=== PATIENT | male | born 1945 | race Caucasian/White ===

== ENCOUNTER 2019-08-13 10:58 | Inpatient (IN) ==
[2019-08-13 13:57] LABS: Basophils # 0.1 10*3/uL (0.0-0.2); Eosinophils # 0.3 10*3/uL (0.0-0.87); Eosinophils % 4.4 % (0.00-10.9); Hematocrit 39.6 VOL% (42.0-52.0); Hemoglobin 11.9 GM/DL (14.0-18.0); Immature Granulocytes % 0.5 %; Immature Granulocytes Absolute 0.03 #; Lymphocytes # 0.6 10*3/uL (1.4-4.0); Mean Corpuscular HGB Conc 30.1 GM/DL (32-36); Mean Corpuscular Volume 78.9 FL (87-102); Mean Platelet Volume 11.2 FL (9.6-12.0); Monocytes % 11.7 % (1.7-12.7); Neutrophils % 72.4 % (38.7-73.9); Platelet Count 288 T/CUMM (130-400); Red Blood Count 5.02 MC/CUMM (3.8-5.5); Red Cell Distribution Width 17.2 % (9.3-17.3); White Blood Count 6.3 T/CUMM (4-12)
[2019-08-13 14:20] LABS: Albumin 3.4 G/DL (3.4-5.0); Bilirubin,Total 1.4 MG/DL (0.2-1.0); Calcium 9.1 MG/DL (8.5-10.1); Osmolality,Calculated 264.4 MOS/KG (273-304); Total Protein 7.5 G/DL (6.4-8.3)
[2019-08-13 16:20] LABS: Apearance,Urine CLEAR (Clear); Bilirubin,Urine Negative (Negative); Blood, Urine Small mg/dL (Negative); Glucose,Urine (UA) 50 mg/dL (Negative); Hyaline Casts,Urine 1 /LPF (0-3); Ketones,Urine 5 mg/dL (Negative); Mucus,Urine Few /LPF (Occasional); Nitrite,Urine Negative (Negative); Protein,Urine 100 MG/DL; RBC,Urine 4 /HPF (0-4); Urine Color Yellow (Yellow); Urine Specific Gravity 1.014 (1.001-1.035); WBC,Urine 1 /HPF (0-6)
[2019-08-13] MEDS ORDERED: SIMETHICONE CHEW 125 MG TABLET PO PRN (17:08)
[2019-08-13] MEDS ORDERED: ZALEPLON 5 MG CAPSULE PO PRN (17:08)
[2019-08-13] MEDS ORDERED: guaiFENesin/DM ER 600-30 MG TABLET PO PRN (17:08)
[2019-08-13] MEDS ORDERED: DOCUSATE SODIUM 100 MG CAPSULE PO PRN (17:08)
[2019-08-13] MEDS ORDERED: BISACODYL 5 MG TABLET PO PRN (17:08)
[2019-08-13] MEDS ORDERED: LACTULOSE 20 GM/30 ML UDCUP PO PRN (17:08)
[2019-08-13] MEDS ORDERED: ALUMINUM/MAGNES/SIMETH MAX STR 30 ML UDCUP PO PRN (17:08)
[2019-08-13] MEDS ORDERED: DEXTROSE 10% 250 ML BAG IV PRN (17:08)
[2019-08-13] MEDS ORDERED: DEXTROSE 50% 25 GM/50 ML VIAL IV PRN (17:08)
[2019-08-13] MEDS ORDERED: GLUCAGON 1 MG VIAL IM PRN ×2 (17:08)
[2019-08-13] MEDS ORDERED: diphenhydrAMINE CAP 25 MG CAPSULE PO PRN (17:08)
[2019-08-13] MEDS ORDERED: ONDANSETRON 4 MG/2 ML VIAL IV PRN (17:08)
[2019-08-13] MEDS ORDERED: CALCIUM CARBONATE CHEW 500 MG TABLET PO PRN (17:08)
[2019-08-13] MEDS ORDERED: ALBUTEROL/IPRATROPIUM 3 ML NEB RESP TX PRN (17:08)
[2019-08-13] MEDS ORDERED: INSULIN REGULAR 100 UNIT/ML SUBCUT SCH (18:00)
[2019-08-13 18:07] LABS: Barbiturates Screen,Urine Negative (Negative); Benzodiazepines Screen,Urine Negative (Negative); Cannabinoid Screen,Urine Negative (Negative); Opiate Screen,Urine Negative (Negative); Phencyclidine Screen,Urine Negative (Negative)
[2019-08-14 04:45] LABS: Basophils # 0.1 10*3/uL (0.0-0.2); Eosinophils # 0.3 10*3/uL (0.0-0.87); Hematocrit 35.4 VOL% (42.0-52.0); Immature Granulocytes % 0.3 %; Immature Granulocytes Absolute 0.02 #; Lymphocytes # 0.5 10*3/uL (1.4-4.0); Lymphocytes % 8.3 % (21.2-54.2); Mean Corpuscular HGB Conc 31.1 GM/DL (32-36); Mean Corpuscular Volume 76.5 FL (87-102); Mean Platelet Volume 10.9 FL (9.6-12.0); Monocytes % 10.9 % (1.7-12.7); Neutrophils % 74.5 % (38.7-73.9); Platelet Count 249 T/CUMM (130-400); Red Blood Count 4.63 MC/CUMM (3.8-5.5); Red Cell Distribution Width 16.9 % (9.3-17.3); White Blood Count 5.8 T/CUMM (4-12)
[2019-08-14 05:15] LABS: Risk Ratio 4.25; Thyroid Stimulating Hormone 6.22 uIU/ml (0.358-3.74); VLDL CHOLESTEROL 19.2 MG/DL
[2019-08-14 06:45] LABS: Bilirubin,Total 1.4 MG/DL (0.2-1.0); Calcium 8.2 MG/DL (8.5-10.1); Osmolality,Calculated 268.1 MOS/KG (273-304); Total Protein 6.3 G/DL (6.4-8.3)
[2019-08-14] MEDS ORDERED: HALOPERIDOL 5 MG/ML AMP IM ONE (08:44)
[2019-08-14] MEDS ORDERED: diphenhydrAMINE 50 MG/1 ML VIAL IM ONE (08:44)
[2019-08-14] MEDS ORDERED: LORazepam 2 MG/1 ML VIAL IV ONE (08:45)
[2019-08-14] MEDS ORDERED: LORazepam 2 MG/1 ML VIAL IM ONE (08:45)
[2019-08-14] MEDS: INSULIN REGULAR 100 UNIT/ML SUBCUT SCH ×4 (08:51→21:22)
[2019-08-14] MEDS: PANTOPRAZOLE 40 MG TABLET PO SCH (09:54)
[2019-08-14] MEDS: MEMANTINE 5 MG TABLET PO SCH (15:41)
[2019-08-14] MEDS: RIVAROXABAN 20 MG TABLET PO SCH (17:08)
[2019-08-14] MEDS: QUEtiapine 25 MG TABLET PO SCH (21:37)
[2019-08-14] MEDS: hydrALAZINE 20 MG/1 ML VIAL IV PRN (21:38)
[2019-08-14] MEDS: DESITIN 4OZ/NYSTATIN 15 GRAM MIXTURE PASTE TOP SCH (21:59)
[2019-08-15 06:43] LABS: Basophils # 0.1 10*3/uL (0.0-0.2); Basophils % 1.2 % (0.0-0.8); Eosinophils # 0.6 10*3/uL (0.0-0.87); Eosinophils % 9.8 % (0.00-10.9); Hemoglobin 11.2 GM/DL (14.0-18.0); Immature Granulocytes % 0.3 %; Immature Granulocytes Absolute 0.02 #; Lymphocytes # 0.8 10*3/uL (1.4-4.0); Lymphocytes % 12.7 % (21.2-54.2); Mean Corpuscular HGB Conc 31.1 GM/DL (32-36); Mean Corpuscular Volume 75.8 FL (87-102); Mean Platelet Volume 10.6 FL (9.6-12.0); Monocytes % 13.2 % (1.7-12.7); Neutrophils % 62.8 % (38.7-73.9); Platelet Count 252 T/CUMM (130-400); Red Blood Count 4.75 MC/CUMM (3.8-5.5); Red Cell Distribution Width 17.2 % (9.3-17.3); White Blood Count 6.5 T/CUMM (4-12)
[2019-08-15 07:13] LABS: Albumin 2.8 G/DL (3.4-5.0); Bilirubin,Total 1.3 MG/DL (0.2-1.0); Calcium 8.5 MG/DL (8.5-10.1); Osmolality,Calculated 271.8 MOS/KG (273-304); Total Protein 6.7 G/DL (6.4-8.3)
[2019-08-15] MEDS: POTASSIUM CHLORIDE 20 MEQ TABLET PO PRN ×4 (09:08→13:57)
[2019-08-15] MEDS: INSULIN REGULAR 100 UNIT/ML SUBCUT SCH ×4 (09:09→20:06)
[2019-08-15] MEDS: PANTOPRAZOLE 40 MG TABLET PO SCH (09:55)
[2019-08-15] MEDS: MEMANTINE 5 MG TABLET PO SCH (09:56)
[2019-08-15] MEDS: DESITIN 4OZ/NYSTATIN 15 GRAM MIXTURE PASTE TOP SCH ×2 (09:56→19:31)
[2019-08-15] MEDS: RIVAROXABAN 20 MG TABLET PO SCH (17:20)
[2019-08-15] MEDS: hydrALAZINE 20 MG/1 ML VIAL IV PRN (17:21)
[2019-08-15] MEDS: QUEtiapine 25 MG TABLET PO SCH ×2 (19:31→22:28)
[2019-08-16 06:12] LABS: Basophils # 0.1 10*3/uL (0.0-0.2); Basophils % 1.1 % (0.0-0.8); Eosinophils # 0.6 10*3/uL (0.0-0.87); Eosinophils % 8.9 % (0.00-10.9); Hematocrit 38.4 VOL% (42.0-52.0); Hemoglobin 11.9 GM/DL (14.0-18.0); Immature Granulocytes % 0.5 %; Immature Granulocytes Absolute 0.03 #; Lymphocytes # 0.7 10*3/uL (1.4-4.0); Lymphocytes % 11.8 % (21.2-54.2); Mean Corpuscular Volume 77.3 FL (87-102); Mean Platelet Volume 10.6 FL (9.6-12.0); Monocytes % 13.9 % (1.7-12.7); Neutrophils % 63.8 % (38.7-73.9); Platelet Count 277 T/CUMM (130-400); Red Blood Count 4.97 MC/CUMM (3.8-5.5); Red Cell Distribution Width 17.6 % (9.3-17.3); White Blood Count 6.3 T/CUMM (4-12)
[2019-08-16 06:19] LABS: Basophils # 0.1 10*3/uL (0.0-0.2); Basophils % 1.2 % (0.0-0.8); Eosinophils # 0.6 10*3/uL (0.0-0.87); Eosinophils % 8.8 % (0.00-10.9); Hematocrit 39.5 VOL% (42.0-52.0); Immature Granulocytes % 0.3 %; Immature Granulocytes Absolute 0.02 #; Lymphocytes # 0.7 10*3/uL (1.4-4.0); Lymphocytes % 11.2 % (21.2-54.2); Mean Corpuscular HGB Conc 30.4 GM/DL (32-36); Mean Corpuscular Volume 78.8 FL (87-102); Mean Platelet Volume 11.1 FL (9.6-12.0); Neutrophils % 65.5 % (38.7-73.9); Platelet Count 297 T/CUMM (130-400); Red Blood Count 5.01 MC/CUMM (3.8-5.5); Red Cell Distribution Width 17.7 % (9.3-17.3); White Blood Count 6.6 T/CUMM (4-12)
[2019-08-16 06:43] LABS: Albumin 3.1 G/DL (3.4-5.0); Bilirubin,Total 1.4 MG/DL (0.2-1.0); Calcium 8.6 MG/DL (8.5-10.1); Total Protein 7.1 G/DL (6.4-8.3)
[2019-08-16 06:53] LABS: Folate 8.6 NG/ML (5.4-24.0); Vitamin B12 683 PG/ML (211-911)
[2019-08-16] MEDS: INSULIN REGULAR 100 UNIT/ML SUBCUT SCH ×4 (09:02→21:23)
[2019-08-16 09:22] LABS: Sedimentation Rate-Westergren 35 MM/HR (0-20)
[2019-08-16] MEDS: PANTOPRAZOLE 40 MG TABLET PO SCH (09:23)
[2019-08-16] MEDS: MEMANTINE 5 MG TABLET PO SCH (09:23)
[2019-08-16] MEDS: DESITIN 4OZ/NYSTATIN 15 GRAM MIXTURE PASTE TOP SCH ×2 (09:24→21:21)
[2019-08-16 10:37] LABS: Hemoglobin A1 (Alkaline) 97.5 % (96.5-98.5); Hemoglobin A2 (Alkaline) 2.5 % (1.5-3.5)
[2019-08-16] MEDS: hydrALAZINE 20 MG/1 ML VIAL IV PRN ×2 (12:31→18:00)
[2019-08-16] MEDS: RIVAROXABAN 20 MG TABLET PO SCH (17:24)
[2019-08-16] MEDS: QUEtiapine 25 MG TABLET PO SCH (21:21)
[2019-08-17 05:57] LABS: Basophils % 0.4 % (0.0-0.8); Eosinophils # 0.1 10*3/uL (0.0-0.87); Eosinophils % 0.7 % (0.00-10.9); Hematocrit 43.7 VOL% (42.0-52.0); Hemoglobin 13.6 GM/DL (14.0-18.0); Immature Granulocytes % 0.6 %; Immature Granulocytes Absolute 0.06 #; Lymphocytes # 0.6 10*3/uL (1.4-4.0); Lymphocytes % 5.5 % (21.2-54.2); Mean Corpuscular HGB Conc 31.1 GM/DL (32-36); Mean Corpuscular Volume 76.5 FL (87-102); Mean Platelet Volume 11.1 FL (9.6-12.0); Monocytes % 10.3 % (1.7-12.7); Neutrophils % 82.5 % (38.7-73.9); Platelet Count 314 T/CUMM (130-400); Red Blood Count 5.71 MC/CUMM (3.8-5.5); Red Cell Distribution Width 18.4 % (9.3-17.3); White Blood Count 10.8 T/CUMM (4-12)
[2019-08-17 06:36] LABS: Albumin 3.2 G/DL (3.4-5.0); Calcium 9.2 MG/DL (8.5-10.1); Osmolality,Calculated 263.5 MOS/KG (273-304); Total Protein 7.9 G/DL (6.4-8.3)
[2019-08-17 06:41] LABS: Free T4 (Free Thyroxine) 1.27 NG/DL (0.76-1.46); Thyroid Stimulating Hormone 5.94 uIU/ml (0.358-3.74)
[2019-08-17] MEDS: PANTOPRAZOLE 40 MG TABLET PO SCH (08:17)
[2019-08-17] MEDS: MEMANTINE 5 MG TABLET PO SCH (08:17)
[2019-08-17] MEDS: DESITIN 4OZ/NYSTATIN 15 GRAM MIXTURE PASTE TOP SCH ×2 (08:17→21:02)
[2019-08-17] MEDS: INSULIN REGULAR 100 UNIT/ML SUBCUT SCH ×4 (09:15→21:01)
[2019-08-17] MEDS: RIVAROXABAN 20 MG TABLET PO SCH (16:50)
[2019-08-17] MEDS: ACETAMINOPHEN 325 MG TABLET PO PRN (21:01)
[2019-08-17] MEDS: QUEtiapine 25 MG TABLET PO SCH (21:01)
[2019-08-18 06:17] LABS: Basophils # 0.1 10*3/uL (0.0-0.2); Basophils % 0.6 % (0.0-0.8); Eosinophils # 0.2 10*3/uL (0.0-0.87); Eosinophils % 2.2 % (0.00-10.9); Hemoglobin 13.2 GM/DL (14.0-18.0); Immature Granulocytes % 0.5 %; Immature Granulocytes Absolute 0.05 #; Lymphocytes # 0.8 10*3/uL (1.4-4.0); Lymphocytes % 7.8 % (21.2-54.2); Mean Corpuscular HGB Conc 30.1 GM/DL (32-36); Mean Platelet Volume 10.6 FL (9.6-12.0); Monocytes % 13.4 % (1.7-12.7); Neutrophils % 75.5 % (38.7-73.9); Platelet Count 334 T/CUMM (130-400); Red Blood Count 5.63 MC/CUMM (3.8-5.5); Red Cell Distribution Width 18.8 % (9.3-17.3); White Blood Count 10.5 T/CUMM (4-12)
[2019-08-18 06:20] LABS: Albumin 2.9 G/DL (3.4-5.0); Bilirubin,Total 3.2 MG/DL (0.2-1.0); Osmolality,Calculated 271.1 MOS/KG (273-304); Total Protein 7.6 G/DL (6.4-8.3)
[2019-08-18 06:38] LABS: Hematocrit 43.1 VOL% (42.0-52.0)
[2019-08-18] MEDS: POTASSIUM CHLORIDE 20 MEQ TABLET PO PRN ×4 (07:20→14:09)
[2019-08-18] MEDS: INSULIN REGULAR 100 UNIT/ML SUBCUT SCH ×4 (08:50→20:45)
[2019-08-18] MEDS: MEMANTINE 5 MG TABLET PO SCH (08:52)
[2019-08-18] MEDS: PANTOPRAZOLE 40 MG TABLET PO SCH (08:52)
[2019-08-18] MEDS: DESITIN 4OZ/NYSTATIN 15 GRAM MIXTURE PASTE TOP SCH ×3 (09:12→20:37)
[2019-08-18] MEDS: RIVAROXABAN 20 MG TABLET PO SCH (16:43)
[2019-08-18] MEDS: QUEtiapine 25 MG TABLET PO SCH (20:36)
[2019-08-19] MEDS: INSULIN REGULAR 100 UNIT/ML SUBCUT SCH ×4 (09:30→20:56)
[2019-08-19] MEDS: MEMANTINE 5 MG TABLET PO SCH (09:31)
[2019-08-19] MEDS: PANTOPRAZOLE 40 MG TABLET PO SCH (09:31)
[2019-08-19] MEDS: DESITIN 4OZ/NYSTATIN 15 GRAM MIXTURE PASTE TOP SCH ×2 (09:32→20:56)
[2019-08-19 14:09] LABS: Basophils # 0.1 10*3/uL (0.0-0.2); Basophils % 0.6 % (0.0-0.8); Eosinophils # 0.3 10*3/uL (0.0-0.87); Eosinophils % 3.6 % (0.00-10.9); Hematocrit 41.2 VOL% (42.0-52.0); Hemoglobin 12.7 GM/DL (14.0-18.0); Immature Granulocytes % 0.6 %; Immature Granulocytes Absolute 0.05 #; Lymphocytes # 0.9 10*3/uL (1.4-4.0); Lymphocytes % 9.4 % (21.2-54.2); Mean Corpuscular HGB Conc 30.8 GM/DL (32-36); Mean Corpuscular Volume 76.4 FL (87-102); Mean Platelet Volume 11.1 FL (9.6-12.0); Monocytes % 13.8 % (1.7-12.7); Platelet Count 325 T/CUMM (130-400); Red Blood Count 5.39 MC/CUMM (3.8-5.5); Red Cell Distribution Width 18.7 % (9.3-17.3); White Blood Count 9.1 T/CUMM (4-12)
[2019-08-19] MEDS: RIVAROXABAN 20 MG TABLET PO SCH (16:40)
[2019-08-19] MEDS: QUEtiapine 25 MG TABLET PO SCH (20:55)
[2019-08-20 05:46] LABS: Basophils # 0.1 10*3/uL (0.0-0.2); Basophils % 0.6 % (0.0-0.8); Eosinophils # 0.5 10*3/uL (0.0-0.87); Eosinophils % 6.3 % (0.00-10.9); Hematocrit 40.5 VOL% (42.0-52.0); Hemoglobin 12.2 GM/DL (14.0-18.0); Immature Granulocytes % 0.6 %; Immature Granulocytes Absolute 0.05 #; Lymphocytes # 0.7 10*3/uL (1.4-4.0); Lymphocytes % 8.7 % (21.2-54.2); Mean Corpuscular HGB Conc 30.1 GM/DL (32-36); Mean Platelet Volume 10.8 FL (9.6-12.0); Neutrophils % 69.8 % (38.7-73.9); Platelet Count 315 T/CUMM (130-400); Red Blood Count 5.19 MC/CUMM (3.8-5.5); Red Cell Distribution Width 18.4 % (9.3-17.3); White Blood Count 7.8 T/CUMM (4-12)
[2019-08-20] MEDS: INSULIN REGULAR 100 UNIT/ML SUBCUT SCH ×4 (08:21→20:42)
[2019-08-20] MEDS: PANTOPRAZOLE 40 MG TABLET PO SCH (09:18)
[2019-08-20] MEDS: MEMANTINE 5 MG TABLET PO SCH (09:18)
[2019-08-20] MEDS: DESITIN 4OZ/NYSTATIN 15 GRAM MIXTURE PASTE TOP SCH ×2 (09:19→20:17)
[2019-08-20] MEDS ORDERED: PREGABALIN 75 MG CAPSULE PO SCH (12:00)
[2019-08-20] MEDS: METOPROLOL SUCCINATE XL 50 MG TABLET PO SCH (12:47)
[2019-08-20] MEDS: AMIODARONE 200 MG TABLET PO SCH ×2 (12:47→20:17)
[2019-08-20] MEDS: metFORMIN 500 MG TABLET PO SCH ×2 (12:47→20:17)
[2019-08-20] MEDS: ALFUZOSIN 10 MG TABLET PO SCH (12:48)
[2019-08-20] MEDS: LEVOTHYROXINE 75 MCG TABLET PO SCH (12:48)
[2019-08-20] MEDS: lisinopriL 5 MG TABLET PO SCH (12:48)
[2019-08-20] MEDS: RIVAROXABAN 20 MG TABLET PO SCH (17:45)
[2019-08-20] MEDS: ROSUVASTATIN 10 MG TABLET PO SCH (20:17)
[2019-08-20] MEDS: QUEtiapine 25 MG TABLET PO SCH (20:17)
[2019-08-20] MEDS: FUROSEMIDE 40 MG TABLET PO SCH (20:17)
[2019-08-20] MEDS ORDERED: traZODone 50 MG TABLET PO SCH (21:00)
[2019-08-21] MEDS: LEVOTHYROXINE 75 MCG TABLET PO SCH (06:10)
[2019-08-21] MEDS: INSULIN REGULAR 100 UNIT/ML SUBCUT SCH ×4 (08:10→21:30)
[2019-08-21] MEDS: PANTOPRAZOLE 40 MG TABLET PO SCH (09:49)
[2019-08-21] MEDS: METOPROLOL SUCCINATE XL 50 MG TABLET PO SCH (09:49)
[2019-08-21] MEDS: lisinopriL 5 MG TABLET PO SCH (09:49)
[2019-08-21] MEDS: metFORMIN 500 MG TABLET PO SCH ×2 (09:49→21:27)
[2019-08-21] MEDS: MEMANTINE 5 MG TABLET PO SCH (09:49)
[2019-08-21] MEDS: ALFUZOSIN 10 MG TABLET PO SCH (09:49)
[2019-08-21] MEDS: AMIODARONE 200 MG TABLET PO SCH ×2 (09:49→21:27)
[2019-08-21] MEDS: DESITIN 4OZ/NYSTATIN 15 GRAM MIXTURE PASTE TOP SCH ×2 (09:50→21:30)
[2019-08-21] MEDS: FUROSEMIDE 40 MG TABLET PO SCH ×2 (09:50→21:27)
[2019-08-21] MEDS: ACETAMINOPHEN 325 MG TABLET PO PRN ×2 (12:29→21:27)
[2019-08-21] MEDS: RIVAROXABAN 20 MG TABLET PO SCH (17:05)
[2019-08-21] MEDS: ROSUVASTATIN 10 MG TABLET PO SCH (21:27)
[2019-08-21] MEDS: QUEtiapine 25 MG TABLET PO SCH (21:27)
[2019-08-22 05:55] LABS: Basophils # 0.1 10*3/uL (0.0-0.2); Basophils % 1.3 % (0.0-0.8); Eosinophils # 0.5 10*3/uL (0.0-0.87); Eosinophils % 7.4 % (0.00-10.9); Hematocrit 39.7 VOL% (42.0-52.0); Hemoglobin 12.5 GM/DL (14.0-18.0); Immature Granulocytes % 0.5 %; Immature Granulocytes Absolute 0.03 #; Lymphocytes # 0.8 10*3/uL (1.4-4.0); Lymphocytes % 13.6 % (21.2-54.2); Mean Corpuscular HGB Conc 31.5 GM/DL (32-36); Mean Corpuscular Volume 76.8 FL (87-102); Mean Platelet Volume 10.5 FL (9.6-12.0); Monocytes % 13.7 % (1.7-12.7); Neutrophils % 63.5 % (38.7-73.9); Platelet Count 316 T/CUMM (130-400); Red Blood Count 5.17 MC/CUMM (3.8-5.5); White Blood Count 6.1 T/CUMM (4-12)
[2019-08-22] MEDS: LEVOTHYROXINE 75 MCG TABLET PO SCH (06:07)
[2019-08-22 06:09] LABS: Calcium 9.1 MG/DL (8.5-10.1)
[2019-08-22] MEDS: INSULIN REGULAR 100 UNIT/ML SUBCUT SCH ×4 (08:17→20:33)
[2019-08-22] MEDS ORDERED: POTASSIUM CHLORIDE 20 MEQ TABLET PO ONE (10:35)
[2019-08-22] MEDS: metFORMIN 500 MG TABLET PO SCH ×2 (10:41→20:31)
[2019-08-22] MEDS: MEMANTINE 5 MG TABLET PO SCH (10:41)
[2019-08-22] MEDS: DESITIN 4OZ/NYSTATIN 15 GRAM MIXTURE PASTE TOP SCH ×2 (10:41→20:34)
[2019-08-22] MEDS: PANTOPRAZOLE 40 MG TABLET PO SCH (10:41)
[2019-08-22] MEDS: FUROSEMIDE 40 MG TABLET PO SCH ×2 (10:41→20:34)
[2019-08-22] MEDS: lisinopriL 5 MG TABLET PO SCH (10:41)
[2019-08-22] MEDS: AMIODARONE 200 MG TABLET PO SCH ×2 (10:41→20:31)
[2019-08-22] MEDS: ALFUZOSIN 10 MG TABLET PO SCH (10:42)
[2019-08-22] MEDS: METOPROLOL SUCCINATE XL 50 MG TABLET PO SCH (10:42)
[2019-08-22] MEDS: RIVAROXABAN 20 MG TABLET PO SCH (17:08)
[2019-08-22] MEDS: ACETAMINOPHEN 325 MG TABLET PO PRN (20:31)
[2019-08-22] MEDS: ROSUVASTATIN 10 MG TABLET PO SCH (20:31)
[2019-08-22] MEDS: QUEtiapine 25 MG TABLET PO SCH (20:31)
[2019-08-23 05:40] LABS: Basophils # 0.1 10*3/uL (0.0-0.2); Basophils % 1.4 % (0.0-0.8); Eosinophils # 0.4 10*3/uL (0.0-0.87); Eosinophils % 6.6 % (0.00-10.9); Hemoglobin 12.1 GM/DL (14.0-18.0); Immature Granulocytes % 0.5 %; Immature Granulocytes Absolute 0.03 #; Lymphocytes # 1.1 10*3/uL (1.4-4.0); Mean Corpuscular Volume 77.4 FL (87-102); Mean Platelet Volume 10.3 FL (9.6-12.0); Monocytes % 13.1 % (1.7-12.7); Neutrophils % 62.4 % (38.7-73.9); Platelet Count 339 T/CUMM (130-400); Red Blood Count 5.22 MC/CUMM (3.8-5.5); Red Cell Distribution Width 18.2 % (9.3-17.3); White Blood Count 6.6 T/CUMM (4-12)
[2019-08-23 06:00] LABS: Calcium 8.9 MG/DL (8.5-10.1); Osmolality,Calculated 275.1 MOS/KG (273-304)
[2019-08-23] MEDS: LEVOTHYROXINE 75 MCG TABLET PO SCH (06:11)
[2019-08-23] MEDS: ACETAMINOPHEN 325 MG TABLET PO PRN (06:11)
[2019-08-23 06:23] LABS: Hematocrit 40.1 VOL% (42.0-52.0)
[2019-08-23] MEDS ORDERED: SODIUM CHLORIDE 0.9% 1,000 ML IV SCH (08:00)
[2019-08-23] MEDS: INSULIN REGULAR 100 UNIT/ML SUBCUT SCH ×2 (08:27→11:54)
[2019-08-23] MEDS: DESITIN 4OZ/NYSTATIN 15 GRAM MIXTURE PASTE TOP SCH (09:13)
[2019-08-23] MEDS: AMIODARONE 200 MG TABLET PO SCH ×2 (09:13→09:19)
[2019-08-23] MEDS: PANTOPRAZOLE 40 MG TABLET PO SCH ×2 (09:13→09:20)
[2019-08-23] MEDS: MEMANTINE 5 MG TABLET PO SCH ×2 (09:13→09:19)
[2019-08-23] MEDS: ALFUZOSIN 10 MG TABLET PO SCH ×2 (09:13→09:20)
[2019-08-23] MEDS: METOPROLOL SUCCINATE XL 50 MG TABLET PO SCH ×2 (09:13→09:20)
[2019-08-23 12:09] VITALS: BP 96/50
== END 2019-08-23 12:24 | disposition psychiatric hospital, planned readmission (93) | DRG 57 ==
LOC: N.ED 10:58 → N.EDINP 17:08 → SUATTDRO 17:08 → N.EDINP 20:47 → N.TELES 22:18
PROVIDERS: ADMIT Hospitalist; ATTEND Internal Medicine

== ENCOUNTER 2019-08-27 12:14 | Inpatient (IN) ==
[2019-08-27] MEDS ORDERED: SODIUM CHLORIDE 0.9% 1,000 ML IV STA ×2 (12:47→15:45)
[2019-08-27 13:00] LABS: Basophils % 0.3 % (0.0-0.8); Eosinophils # 0.1 10*3/uL (0.0-0.87); Eosinophils % 0.8 % (0.00-10.9); Hematocrit 43.8 VOL% (42.0-52.0); Hemoglobin 13.3 GM/DL (14.0-18.0); Immature Granulocytes % 0.6 %; Immature Granulocytes Absolute 0.07 #; Lymphocytes # 1.1 10*3/uL (1.4-4.0); Lymphocytes % 10.2 % (21.2-54.2); Mean Corpuscular HGB Conc 30.4 GM/DL (32-36); Mean Corpuscular Volume 77.4 FL (87-102); Mean Platelet Volume 11.1 FL (9.6-12.0); Monocytes % 13.5 % (1.7-12.7); Neutrophils % 74.6 % (38.7-73.9); Platelet Count 359 T/CUMM (130-400); Red Blood Count 5.66 MC/CUMM (3.8-5.5); Red Cell Distribution Width 18.7 % (9.3-17.3); White Blood Count 11.2 T/CUMM (4-12)
[2019-08-27 13:14] LABS: Osmolality,Calculated 279.2 MOS/KG (273-304)
[2019-08-27 14:55] LABS: Apearance,Urine CLEAR (Clear); Bilirubin,Urine Negative (Negative); Blood, Urine Moderate mg/dL (Negative); Glucose,Urine (UA) Negative (Negative); Ketones,Urine Negative (Negative); Mucus,Urine Occasional /LPF (Occasional); Nitrite,Urine Negative (Negative); Protein,Urine Negative; RBC,Urine 7 /HPF (0-4); Urine Color Amber (Yellow); Urine Specific Gravity 1.014 (1.001-1.035); Urine Urobilinogen < 2.0 EU/DL (0.2-1.0)
[2019-08-27] MEDS ORDERED: MORPHINE 4 MG/1 ML VIAL IV PRN (15:12)
[2019-08-27] MEDS ORDERED: GLUCAGON 1 MG VIAL IM PRN (15:12)
[2019-08-27] MEDS ORDERED: DEXTROSE 50% 25 GM/50 ML VIAL IV PRN (15:12)
[2019-08-27] MEDS: INSULIN REGULAR 100 UNIT/ML SUBCUT SCH ×2 (17:29→21:37)
[2019-08-27] MEDS: DEXTROSE 5% NACL 0.9% 1,000 ML IV SCH (17:36)
[2019-08-27] MEDS ORDERED: ENOXAPARIN 30 MG/0.3 ML SYRINGE SUBCUT SCH (21:00)
[2019-08-27] MEDS: RIVAROXABAN 20 MG TABLET PO SCH (21:36)
[2019-08-27] MEDS: AMIODARONE 200 MG TABLET PO SCH (21:37)
[2019-08-28] MEDS: DEXTROSE 5% NACL 0.9% 1,000 ML IV SCH (02:35)
[2019-08-28] MEDS: LEVOTHYROXINE 88 MCG TABLET PO SCH (06:45)
[2019-08-28 07:52] LABS: Basophils % 0.4 % (0.0-0.8); Eosinophils # 0.2 10*3/uL (0.0-0.87); Eosinophils % 2.2 % (0.00-10.9); Hematocrit 37.7 VOL% (42.0-52.0); Hemoglobin 11.6 GM/DL (14.0-18.0); Immature Granulocytes % 0.9 %; Immature Granulocytes Absolute 0.07 #; Lymphocytes # 0.7 10*3/uL (1.4-4.0); Lymphocytes % 8.6 % (21.2-54.2); Mean Corpuscular HGB Conc 30.8 GM/DL (32-36); Mean Corpuscular Volume 76.3 FL (87-102); Mean Platelet Volume 12.1 FL (9.6-12.0); Monocytes % 15.4 % (1.7-12.7); Neutrophils % 72.5 % (38.7-73.9); Platelet Count 294 T/CUMM (130-400); Red Blood Count 4.94 MC/CUMM (3.8-5.5); Red Cell Distribution Width 18.2 % (9.3-17.3); White Blood Count 7.8 T/CUMM (4-12)
[2019-08-28 08:14] LABS: Albumin 2.3 G/DL (3.4-5.0); Bilirubin,Total 0.6 MG/DL (0.2-1.0); Calcium 8.1 MG/DL (8.5-10.1); Osmolality,Calculated 288.5 MOS/KG (273-304); Total Protein 6.9 G/DL (6.4-8.3)
[2019-08-28] MEDS ORDERED: PANTOPRAZOLE 40 MG TABLET PO SCH (09:00)
[2019-08-28] MEDS: MEMANTINE 5 MG TABLET PO SCH (09:26)
[2019-08-28] MEDS: AMIODARONE 200 MG TABLET PO SCH ×2 (09:26→21:25)
[2019-08-28] MEDS: INSULIN REGULAR 100 UNIT/ML SUBCUT SCH ×4 (09:26→21:25)
[2019-08-28] MEDS: METOPROLOL TARTRATE 25 MG TABLET PO SCH (09:26)
[2019-08-28] MEDS ORDERED: DEXTROSE 5% NACL 0.45% 1,000 ML IV SCH (15:00)
[2019-08-28] MEDS: SODIUM CHLORIDE IV SCH (15:58)
[2019-08-28] MEDS: SODIUM BICARB IV SCH (15:58)
[2019-08-28] MEDS: [UNRECOGNIZED DRUG - OTHER] IV SCH (15:58)
[2019-08-28] MEDS: RIVAROXABAN 20 MG TABLET PO SCH (16:02)
[2019-08-29] MEDS: SODIUM BICARB IV SCH ×3 (02:31→21:35)
[2019-08-29] MEDS: SODIUM CHLORIDE IV SCH ×3 (02:31→21:35)
[2019-08-29] MEDS: [UNRECOGNIZED DRUG - OTHER] IV SCH (02:31)
[2019-08-29] MEDS: DEXTROSE 5% NACL 0.9% 1,000 ML IV SCH (02:33)
[2019-08-29 05:56] LABS: Calcium 8.1 MG/DL (8.5-10.1); Osmolality,Calculated 285.8 MOS/KG (273-304)
[2019-08-29] MEDS: LEVOTHYROXINE 88 MCG TABLET PO SCH (06:00)
[2019-08-29] MEDS: MEMANTINE 5 MG TABLET PO SCH (09:34)
[2019-08-29] MEDS: INSULIN REGULAR 100 UNIT/ML SUBCUT SCH ×3 (09:34→16:38)
[2019-08-29] MEDS: AMIODARONE 200 MG TABLET PO SCH ×2 (09:35→21:35)
[2019-08-29] MEDS: HEPARIN 5,000 UNIT/1 ML VIAL SUBCUT SCH ×2 (09:35→21:36)
[2019-08-29] MEDS: METOPROLOL TARTRATE 25 MG TABLET PO SCH (09:38)
[2019-08-29] MEDS: [UNRECOGNIZED DRUG - OTHER] IV SCH ×2 (09:46→21:35)
[2019-08-29 12:34] LABS: Protein/Creatinine Ratio,Urine 1.3 RATIO
[2019-08-29] MEDS: ACETAMINOPHEN 325 MG TABLET PO PRN (21:35)
[2019-08-30] MEDS: INSULIN REGULAR 100 UNIT/ML SUBCUT SCH ×5 (02:50→22:05)
[2019-08-30 05:24] LABS: Basophils # 0.1 10*3/uL (0.0-0.2); Basophils % 0.7 % (0.0-0.8); Eosinophils # 0.2 10*3/uL (0.0-0.87); Eosinophils % 2.7 % (0.00-10.9); Hemoglobin 10.6 GM/DL (14.0-18.0); Immature Granulocytes Absolute 0.07 #; Lymphocytes # 0.6 10*3/uL (1.4-4.0); Mean Corpuscular HGB Conc 32.1 GM/DL (32-36); Mean Corpuscular Volume 72.8 FL (87-102); Mean Platelet Volume 11.7 FL (9.6-12.0); Neutrophils % 73.6 % (38.7-73.9); Platelet Count 270 T/CUMM (130-400); Red Blood Count 4.53 MC/CUMM (3.8-5.5); Red Cell Distribution Width 18.2 % (9.3-17.3); White Blood Count 6.8 T/CUMM (4-12)
[2019-08-30] MEDS: LEVOTHYROXINE 88 MCG TABLET PO SCH (05:44)
[2019-08-30 05:51] LABS: Calcium 7.9 MG/DL (8.5-10.1); Osmolality,Calculated 289.2 MOS/KG (273-304)
[2019-08-30] MEDS: [UNRECOGNIZED DRUG - OTHER] IV SCH (08:25)
[2019-08-30] MEDS: SODIUM BICARB IV SCH (08:25)
[2019-08-30] MEDS: SODIUM CHLORIDE IV SCH (08:25)
[2019-08-30] MEDS: MEMANTINE 5 MG TABLET PO SCH (08:26)
[2019-08-30] MEDS: METOPROLOL TARTRATE 25 MG TABLET PO SCH (08:26)
[2019-08-30] MEDS: HEPARIN 5,000 UNIT/1 ML VIAL SUBCUT SCH (08:26)
[2019-08-30] MEDS: AMIODARONE 200 MG TABLET PO SCH ×2 (08:26→22:04)
[2019-08-30] MEDS ORDERED: SODIUM BICARB INJ 100 MEQ in DEXTROSE 5% NACL 0.22% 1,000 ML IV SCH (15:00)
[2019-08-30] MEDS: DEXTROSE 5% NACL 0.9% 1,000 ML IV SCH (18:27)
[2019-08-30] MEDS ORDERED: PREGABALIN 75 MG CAPSULE PO SCH (21:00)
[2019-08-30] MEDS: PANTOPRAZOLE 40 MG TABLET PO SCH (22:04)
[2019-08-30] MEDS: MELATONIN 3 MG TABLET PO SCH (22:04)
[2019-08-31] MEDS: LEVOTHYROXINE 88 MCG TABLET PO SCH (05:49)
[2019-08-31] MEDS: DEXTROSE 5% NACL 0.9% 1,000 ML IV SCH ×3 (05:52→23:29)
[2019-08-31 06:55] LABS: Basophils % 0.6 % (0.0-0.8); Eosinophils # 0.2 10*3/uL (0.0-0.87); Eosinophils % 2.6 % (0.00-10.9); Hematocrit 33.2 VOL% (42.0-52.0); Hemoglobin 10.9 GM/DL (14.0-18.0); Immature Granulocytes % 0.8 %; Immature Granulocytes Absolute 0.05 #; Lymphocytes # 0.7 10*3/uL (1.4-4.0); Lymphocytes % 10.6 % (21.2-54.2); Mean Corpuscular HGB Conc 32.8 GM/DL (32-36); Mean Corpuscular Volume 73.3 FL (87-102); Mean Platelet Volume 11.9 FL (9.6-12.0); Monocytes % 13.6 % (1.7-12.7); Neutrophils % 71.8 % (38.7-73.9); Platelet Count 297 T/CUMM (130-400); Red Blood Count 4.53 MC/CUMM (3.8-5.5); Red Cell Distribution Width 18.6 % (9.3-17.3); White Blood Count 6.5 T/CUMM (4-12)
[2019-08-31 07:21] LABS: Calcium 8.1 MG/DL (8.5-10.1); Osmolality,Calculated 284.1 MOS/KG (273-304)
[2019-08-31] MEDS ORDERED: MAGNESIUM SULF RIDER 4 GM in PREMIX 1 EACH IV PRN (07:56)
[2019-08-31] MEDS: INSULIN REGULAR 100 UNIT/ML SUBCUT SCH ×4 (08:16→21:25)
[2019-08-31] MEDS: ALFUZOSIN 10 MG TABLET PO SCH (08:54)
[2019-08-31] MEDS: MEMANTINE 5 MG TABLET PO SCH (08:54)
[2019-08-31] MEDS: METOPROLOL TARTRATE 25 MG TABLET PO SCH (08:55)
[2019-08-31] MEDS: PANTOPRAZOLE 40 MG TABLET PO SCH ×2 (08:55→21:26)
[2019-08-31] MEDS: AMIODARONE 200 MG TABLET PO SCH ×2 (08:55→21:26)
[2019-08-31] MEDS: MAGNESIUM SULF RIDER 2 GM in PREMIX 1 EACH IV PRN (08:57)
[2019-08-31] MEDS ORDERED: MAGNESIUM SULF RIDER 4 GM in PREMIX 1 EACH IV ONE (10:16)
[2019-08-31] MEDS ORDERED: MAGNESIUM SULF RIDER 2 GM in PREMIX 1 EACH IV ONE (11:00)
[2019-08-31] MEDS: RIVAROXABAN 15 MG TABLET PO SCH (17:41)
[2019-08-31] MEDS: MELATONIN 3 MG TABLET PO SCH (21:26)
[2019-09-01] MEDS: LEVOTHYROXINE 88 MCG TABLET PO SCH (05:39)
[2019-09-01 06:39] LABS: Basophils # 0.1 10*3/uL (0.0-0.2); Basophils % 0.7 % (0.0-0.8); Eosinophils # 0.2 10*3/uL (0.0-0.87); Eosinophils % 2.5 % (0.00-10.9); Hematocrit 37.3 VOL% (42.0-52.0); Hemoglobin 11.4 GM/DL (14.0-18.0); Immature Granulocytes % 0.4 %; Immature Granulocytes Absolute 0.03 #; Lymphocytes # 0.6 10*3/uL (1.4-4.0); Mean Corpuscular HGB Conc 30.6 GM/DL (32-36); Mean Corpuscular Volume 76.4 FL (87-102); Mean Platelet Volume 10.9 FL (9.6-12.0); Monocytes % 11.5 % (1.7-12.7); Neutrophils % 76.9 % (38.7-73.9); Platelet Count 287 T/CUMM (130-400); Red Blood Count 4.88 MC/CUMM (3.8-5.5); Red Cell Distribution Width 18.6 % (9.3-17.3); White Blood Count 7.2 T/CUMM (4-12)
[2019-09-01 07:13] LABS: % Iron Saturation 10.6 % (18-50); Calcium 8.6 MG/DL (8.5-10.1); Ferritin 175.7 ng/ml (26-388); Osmolality,Calculated 286.7 MOS/KG (273-304)
[2019-09-01] MEDS: INSULIN REGULAR 100 UNIT/ML SUBCUT SCH ×4 (07:30→21:52)
[2019-09-01] MEDS: ALFUZOSIN 10 MG TABLET PO SCH (09:37)
[2019-09-01] MEDS: AMIODARONE 200 MG TABLET PO SCH ×2 (09:38→21:52)
[2019-09-01] MEDS: MEMANTINE 5 MG TABLET PO SCH (09:38)
[2019-09-01] MEDS: METOPROLOL TARTRATE 25 MG TABLET PO SCH (09:38)
[2019-09-01] MEDS: PANTOPRAZOLE 40 MG TABLET PO SCH ×2 (09:38→21:53)
[2019-09-01] MEDS ORDERED: ONDANSETRON 4 MG/2 ML VIAL IV PRN (10:25)
[2019-09-01] MEDS: DEXTROSE 5% NACL 0.9% 1,000 ML IV SCH (12:53)
[2019-09-01] MEDS ORDERED: POTASSIUM CHLORIDE 20 MEQ TABLET PO ONE (13:07)
[2019-09-01] MEDS: SODIUM CHLORIDE 0.9% 1,000 ML IV SCH (13:42)
[2019-09-01] MEDS: amLODIPine 10 MG TABLET PO SCH (13:43)
[2019-09-01] MEDS ORDERED: TUBERCULIN SKIN TEST 0.1 ML SYRINGE INTRADERM ONE (16:37)
[2019-09-01] MEDS: FERROUS SULFATE 325 MG TABLET PO SCH (16:47)
[2019-09-01] MEDS: RIVAROXABAN 15 MG TABLET PO SCH (16:47)
[2019-09-01] MEDS: MELATONIN 3 MG TABLET PO SCH (21:53)
[2019-09-02 05:50] LABS: Calcium 8.7 MG/DL (8.5-10.1); Osmolality,Calculated 287.4 MOS/KG (273-304)
[2019-09-02 05:51] LABS: Calcium 8.9 MG/DL (8.5-10.1); Osmolality,Calculated 286.4 MOS/KG (273-304)
[2019-09-02] MEDS: SODIUM CHLORIDE 0.9% 1,000 ML IV SCH ×3 (06:06→19:26)
[2019-09-02] MEDS: LEVOTHYROXINE 88 MCG TABLET PO SCH (06:07)
[2019-09-02] MEDS: INSULIN REGULAR 100 UNIT/ML SUBCUT SCH ×4 (09:08→21:41)
[2019-09-02] MEDS: ALFUZOSIN 10 MG TABLET PO SCH (09:09)
[2019-09-02] MEDS: amLODIPine 10 MG TABLET PO SCH (09:09)
[2019-09-02] MEDS: AMIODARONE 200 MG TABLET PO SCH ×2 (09:09→21:36)
[2019-09-02] MEDS: MEMANTINE 5 MG TABLET PO SCH (09:09)
[2019-09-02] MEDS: METOPROLOL TARTRATE 25 MG TABLET PO SCH (09:09)
[2019-09-02] MEDS: PANTOPRAZOLE 40 MG TABLET PO SCH ×2 (09:09→21:36)
[2019-09-02] MEDS: FERROUS SULFATE 325 MG TABLET PO SCH (09:09)
[2019-09-02] MEDS: RIVAROXABAN 15 MG TABLET PO SCH (16:25)
[2019-09-02] MEDS: hydrALAZINE 25 MG TABLET PO SCH ×2 (16:26→21:36)
[2019-09-02] MEDS: MELATONIN 3 MG TABLET PO SCH (21:36)
[2019-09-03 05:35] LABS: Basophils % 0.2 % (0.0-0.8); Eosinophils # 0.1 10*3/uL (0.0-0.87); Eosinophils % 0.4 % (0.00-10.9); Hematocrit 34.4 VOL% (42.0-52.0); Hemoglobin 10.3 GM/DL (14.0-18.0); Immature Granulocytes % 0.7 %; Immature Granulocytes Absolute 0.08 #; Lymphocytes # 0.6 10*3/uL (1.4-4.0); Mean Corpuscular HGB Conc 29.9 GM/DL (32-36); Mean Platelet Volume 11.1 FL (9.6-12.0); Monocytes % 7.9 % (1.7-12.7); Neutrophils % 85.8 % (38.7-73.9); Platelet Count 238 T/CUMM (130-400); Red Blood Count 4.41 MC/CUMM (3.8-5.5); Red Cell Distribution Width 19.1 % (9.3-17.3); White Blood Count 12.1 T/CUMM (4-12)
[2019-09-03] MEDS: LEVOTHYROXINE 88 MCG TABLET PO SCH (05:53)
[2019-09-03 06:06] LABS: Albumin 2.2 G/DL (3.4-5.0); Bilirubin,Total 1.1 MG/DL (0.2-1.0); Calcium 8.7 MG/DL (8.5-10.1); Osmolality,Calculated 284.5 MOS/KG (273-304); Total Protein 6.8 G/DL (6.4-8.3)
[2019-09-03] MEDS: ALFUZOSIN 10 MG TABLET PO SCH (08:56)
[2019-09-03] MEDS: AMIODARONE 200 MG TABLET PO SCH ×2 (08:56→20:24)
[2019-09-03] MEDS: amLODIPine 10 MG TABLET PO SCH (08:56)
[2019-09-03] MEDS: METOPROLOL TARTRATE 25 MG TABLET PO SCH (08:56)
[2019-09-03] MEDS: PANTOPRAZOLE 40 MG TABLET PO SCH ×2 (08:56→20:23)
[2019-09-03] MEDS: MEMANTINE 5 MG TABLET PO SCH (08:56)
[2019-09-03] MEDS: hydrALAZINE 25 MG TABLET PO SCH (08:56)
[2019-09-03] MEDS: INSULIN REGULAR 100 UNIT/ML SUBCUT SCH ×4 (09:54→20:23)
[2019-09-03] MEDS ORDERED: hydrALAZINE 20 MG/1 ML VIAL IV PRN (11:08)
[2019-09-03] MEDS: RIVAROXABAN 20 MG TABLET PO SCH (16:03)
[2019-09-03] MEDS: MIRTAZAPINE 15 MG TABLET PO SCH (20:24)
[2019-09-03] MEDS: MELATONIN 3 MG TABLET PO SCH (20:24)
[2019-09-03] MEDS ORDERED: SERTRALINE 50 MG TABLET PO SCH (21:00)
[2019-09-04] MEDS: LEVOTHYROXINE 88 MCG TABLET PO SCH (05:46)
[2019-09-04] MEDS: MAGNESIUM SULF RIDER 2 GM in PREMIX 1 EACH IV PRN (06:31)
[2019-09-04 06:47] LABS: Calcium 8.6 MG/DL (8.5-10.1); Osmolality,Calculated 283.5 MOS/KG (273-304)
[2019-09-04] MEDS: INSULIN REGULAR 100 UNIT/ML SUBCUT SCH ×4 (07:45→20:15)
[2019-09-04] MEDS: AMIODARONE 200 MG TABLET PO SCH ×2 (09:50→21:06)
[2019-09-04] MEDS: MEMANTINE 5 MG TABLET PO SCH (09:50)
[2019-09-04] MEDS: POTASSIUM CHLORIDE 20 MEQ TABLET PO PRN ×3 (09:50→21:06)
[2019-09-04] MEDS: METOPROLOL TARTRATE 25 MG TABLET PO SCH (09:50)
[2019-09-04] MEDS: PANTOPRAZOLE 40 MG TABLET PO SCH ×2 (09:50→21:06)
[2019-09-04] MEDS: amLODIPine 10 MG TABLET PO SCH (09:50)
[2019-09-04] MEDS: ALFUZOSIN 10 MG TABLET PO SCH (09:50)
[2019-09-04] MEDS: ACETAMINOPHEN 325 MG TABLET PO PRN (12:40)
[2019-09-04] MEDS: RIVAROXABAN 20 MG TABLET PO SCH (17:04)
[2019-09-04] MEDS: MELATONIN 3 MG TABLET PO SCH (21:06)
[2019-09-04] MEDS: MIRTAZAPINE 15 MG TABLET PO SCH (21:06)
[2019-09-05 05:16] LABS: Basophils # 0.1 10*3/uL (0.0-0.2); Basophils % 0.5 % (0.0-0.8); Eosinophils # 0.3 10*3/uL (0.0-0.87); Eosinophils % 3.4 % (0.00-10.9); Hematocrit 33.9 VOL% (42.0-52.0); Hemoglobin 10.5 GM/DL (14.0-18.0); Immature Granulocytes % 0.7 %; Immature Granulocytes Absolute 0.07 #; Lymphocytes # 0.6 10*3/uL (1.4-4.0); Lymphocytes % 6.7 % (21.2-54.2); Mean Corpuscular Volume 75.5 FL (87-102); Mean Platelet Volume 11.3 FL (9.6-12.0); Neutrophils % 79.7 % (38.7-73.9); Platelet Count 228 T/CUMM (130-400); Red Blood Count 4.49 MC/CUMM (3.8-5.5); Red Cell Distribution Width 19.5 % (9.3-17.3); White Blood Count 9.5 T/CUMM (4-12)
[2019-09-05 05:35] LABS: Calcium 8.8 MG/DL (8.5-10.1); Osmolality,Calculated 286.4 MOS/KG (273-304)
[2019-09-05 05:40] LABS: Albumin 2.4 G/DL (3.4-5.0); Bilirubin,Total 1.4 MG/DL (0.2-1.0); Osmolality,Calculated 285.4 MOS/KG (273-304); Total Protein 7.2 G/DL (6.4-8.3)
[2019-09-05] MEDS: LEVOTHYROXINE 88 MCG TABLET PO SCH (06:19)
[2019-09-05] MEDS: POTASSIUM CHLORIDE 20 MEQ TABLET PO PRN (06:23)
[2019-09-05] MEDS: INSULIN REGULAR 100 UNIT/ML SUBCUT SCH ×4 (08:50→20:57)
[2019-09-05] MEDS: ALFUZOSIN 10 MG TABLET PO SCH (09:18)
[2019-09-05] MEDS: amLODIPine 10 MG TABLET PO SCH (09:18)
[2019-09-05] MEDS: PANTOPRAZOLE 40 MG TABLET PO SCH ×2 (09:18→21:42)
[2019-09-05] MEDS: MEMANTINE 5 MG TABLET PO SCH (09:18)
[2019-09-05] MEDS: AMIODARONE 200 MG TABLET PO SCH ×2 (09:18→21:42)
[2019-09-05] MEDS: METOPROLOL TARTRATE 25 MG TABLET PO SCH (10:44)
[2019-09-05] MEDS ORDERED: hydrALAZINE 25 MG TABLET ONE (17:14)
[2019-09-05] MEDS: RIVAROXABAN 20 MG TABLET PO SCH (17:22)
[2019-09-05] MEDS: MELATONIN 3 MG TABLET PO SCH (21:42)
[2019-09-05] MEDS: MIRTAZAPINE 15 MG TABLET PO SCH (21:42)
[2019-09-06 05:15] LABS: Basophils # 0.1 10*3/uL (0.0-0.2); Basophils % 0.5 % (0.0-0.8); Eosinophils # 0.1 10*3/uL (0.0-0.87); Eosinophils % 1.3 % (0.00-10.9); Hematocrit 33.3 VOL% (42.0-52.0); Hemoglobin 10.3 GM/DL (14.0-18.0); Immature Granulocytes % 0.7 %; Immature Granulocytes Absolute 0.07 #; Lymphocytes # 0.6 10*3/uL (1.4-4.0); Lymphocytes % 5.6 % (21.2-54.2); Mean Corpuscular HGB Conc 30.9 GM/DL (32-36); Mean Corpuscular Volume 75.9 FL (87-102); Mean Platelet Volume 10.7 FL (9.6-12.0); Monocytes % 8.4 % (1.7-12.7); Neutrophils % 83.5 % (38.7-73.9); Platelet Count 213 T/CUMM (130-400); Red Blood Count 4.39 MC/CUMM (3.8-5.5); Red Cell Distribution Width 19.7 % (9.3-17.3); White Blood Count 9.9 T/CUMM (4-12)
[2019-09-06 05:34] LABS: Osmolality,Calculated 284.4 MOS/KG (273-304)
[2019-09-06] MEDS: LEVOTHYROXINE 88 MCG TABLET PO SCH (06:32)
[2019-09-06] MEDS: INSULIN REGULAR 100 UNIT/ML SUBCUT SCH ×2 (07:30→10:49)
[2019-09-06] MEDS ORDERED: hydrALAZINE 25 MG TABLET ONE (09:03)
[2019-09-06] MEDS: MEMANTINE 5 MG TABLET PO SCH (09:30)
[2019-09-06] MEDS: AMIODARONE 200 MG TABLET PO SCH (09:30)
[2019-09-06] MEDS: PANTOPRAZOLE 40 MG TABLET PO SCH (09:30)
[2019-09-06] MEDS: ALFUZOSIN 10 MG TABLET PO SCH (09:30)
[2019-09-06] MEDS: METOPROLOL TARTRATE 25 MG TABLET PO SCH (09:30)
[2019-09-06] MEDS: amLODIPine 10 MG TABLET PO SCH (09:31)
[2019-09-06 11:15] VITALS: BP 139/57
== END 2019-09-06 13:37 | DRG 682 ==
LOC: EDUNIT# → EDBD → N.EDINP 12:14 → N.ED 12:14 → N.3E 16:04 → SUATTDRO 08-28 07:58
PROVIDERS: ADMIT Internal Medicine; ATTEND Internal Medicine Geriatric Medicine

== ENCOUNTER 2020-08-17 11:03 | Inpatient (IN) ==
[2020-08-17 11:48] LABS: Basophils % 0.4 % (0.0-0.8); Eosinophils # 0.2 10*3/uL (0.0-0.87); Eosinophils % 2.7 % (0.00-10.9); Hemoglobin 6.7 GM/DL (14.0-18.0); Immature Granulocytes % 0.7 %; Immature Granulocytes Absolute 0.05 #; Lymphocytes # 0.7 10*3/uL (1.4-4.0); Lymphocytes % 10.9 % (21.2-54.2); Mean Corpuscular HGB Conc 30.5 GM/DL (32-36); Mean Corpuscular Volume 92.1 FL (87-102); Mean Platelet Volume 10.8 FL (9.6-12.0); Monocytes % 12.3 % (1.7-12.7); Platelet Count 147 T/CUMM (130-400); Red Blood Count 2.39 MC/CUMM (3.8-5.5); Red Cell Distribution Width 17.4 % (9.3-17.3); White Blood Count 6.7 T/CUMM (4-12)
[2020-08-17] MEDS ORDERED: PANTOPRAZOLE 40 MG VIAL IV STA (12:25)
[2020-08-17 12:29] LABS: Alanine Aminotransferase 25 U/L (16-61); Albumin 3.2 G/DL (3.4-5.0); Alkaline Phosphatase 171 U/L (45-117); Aspartate Amino Transferase 21 U/L (0-37); Bilirubin,Total < 0.39 MG/DL (0.2-1.0); Blood Urea Nitrogen 37 MG/DL (7-18); Calcium 8.5 MG/DL (8.5-10.1); Carbon Dioxide 21 MMOL/L (21-32); Estimated Glom Filtration Rate 48 ML/MIN; Glucose 176 MG/DL (74-106); Osmolality,Calculated 278.4 MOS/KG (273-304); Potassium 5.1 MMOL/L (3.5-5.1); Sodium 133 MMOL/L (136-145); Total Protein 7.2 G/DL (6.4-8.2)
[2020-08-17 13:23] LABS: INR 2.5; PT Patient Result 26.2 SECS (10.5-12.0)
[2020-08-17] MEDS ORDERED: PHYTONADIONE INJ 10 MG in SODIUM CHLORIDE 0.9% 50 ML IV ONE (13:32)
[2020-08-17] MEDS ORDERED: SODIUM CHLORIDE 0.9% 1,000 ML IV PRN ×3 (13:32→14:14)
[2020-08-17] MEDS ORDERED: GLUCAGON 1 MG VIAL IM PRN (14:06)
[2020-08-17] MEDS ORDERED: DEXTROSE 50% 25 GM/50 ML VIAL IV PRN (14:06)
[2020-08-17 17:13] LABS: Hematocrit 22.5 VOL% (42.0-52.0); Hemoglobin 6.8 GM/DL (14.0-18.0)
[2020-08-17] MEDS: PANTOPRAZOLE INJ 200 MG in SODIUM CHLORIDE 0.9% 250 ML IV SCH (17:58)
[2020-08-17] MEDS: SODIUM CHLORIDE 0.45% 1,000 ML IV SCH (17:58)
[2020-08-17] MEDS: INSULIN LISPRO 100 UNIT/ML SUBCUT SCH (19:01)
[2020-08-17] MEDS: POLYETHYLENE GLYCOL POWDER 17 GM PACK PO SCH (21:48)
[2020-08-17 22:36] LABS: Hemoglobin 6.4 GM/DL (14.0-18.0)
[2020-08-18] MEDS: INSULIN LISPRO 100 UNIT/ML SUBCUT SCH ×4 (01:07→22:17)
[2020-08-18] MEDS: SODIUM CHLORIDE 0.45% 1,000 ML IV SCH ×2 (02:57→22:18)
[2020-08-18 07:33] LABS: Basophils % 0.6 % (0.0-0.8); Eosinophils # 0.2 10*3/uL (0.0-0.87); Eosinophils % 3.9 % (0.00-10.9); Hematocrit 22.2 VOL% (42.0-52.0); Hemoglobin 7.3 GM/DL (14.0-18.0); Immature Granulocytes % 0.4 %; Immature Granulocytes Absolute 0.02 #; Lymphocytes # 0.8 10*3/uL (1.4-4.0); Lymphocytes % 13.8 % (21.2-54.2); Mean Corpuscular HGB Conc 32.9 GM/DL (32-36); Mean Corpuscular Volume 88.8 FL (87-102); Mean Platelet Volume 11.7 FL (9.6-12.0); Monocytes % 16.2 % (1.7-12.7); NRBC # 0.02 10*3/uL; Neutrophils % 65.1 % (38.7-73.9); Platelet Count 139 T/CUMM (130-400); Red Cell Distribution Width 16.7 % (9.3-17.3); White Blood Count 5.4 T/CUMM (4-12)
[2020-08-18 07:47] LABS: INR 1.2; PT Patient Result 13.7 SECS (10.5-12.0)
[2020-08-18 07:58] LABS: Calcium 8.4 MG/DL (8.5-10.1); Potassium 4.3 MMOL/L (3.5-5.1)
[2020-08-18 08:16] LABS: Atypical Lymphocytes Few; Eosinophils 4 % (0-10); Hypochromasia 1+; Lymphocytes 16 % (20-55); Segmented Neutrophils 68 % (50-85); Total Cells Counted 100
[2020-08-18 08:17] LABS: Microcytosis 1+
[2020-08-18 08:19] LABS: Ovalocytes Few
[2020-08-18 08:20] LABS: Polychromasia Slight
[2020-08-18 08:21] LABS: Tear Drop Cells Slight
[2020-08-18 08:22] LABS: Platelet Estimate Adequate
[2020-08-18] MEDS ORDERED: propofoL 200 MG/20 ML VIAL IV ONE (08:52)
[2020-08-18] MEDS ORDERED: LIDOCAINE 2% 5 ML VIAL ONE (08:52)
[2020-08-18] MEDS ORDERED: PHENYLEPHRINE 1 MG/10 ML SYRINGE IV ONE (09:14)
[2020-08-18] MEDS ORDERED: SODIUM CHLORIDE 0.9% 1,000 ML IV PRN (09:28)
[2020-08-18] MEDS: POLYETHYLENE GLYCOL POWDER 17 GM PACK PO SCH ×2 (10:34→22:17)
[2020-08-18] MEDS: PANTOPRAZOLE INJ 200 MG in SODIUM CHLORIDE 0.9% 250 ML IV SCH (22:18)
[2020-08-18] MEDS: METOPROLOL TARTRATE 25 MG TABLET PO SCH (22:21)
[2020-08-18] MEDS: traZODone 50 MG TABLET PO SCH (22:21)
[2020-08-19] MEDS: INSULIN LISPRO 100 UNIT/ML SUBCUT SCH ×4 (00:13→18:57)
[2020-08-19] MEDS: SODIUM CHLORIDE 0.45% 1,000 ML IV SCH ×3 (01:06→16:34)
[2020-08-19 05:32] LABS: Basophils # 0.1 10*3/uL (0.0-0.2); Basophils % 0.8 % (0.0-0.8); Eosinophils # 0.3 10*3/uL (0.0-0.87); Hematocrit 27.5 VOL% (42.0-52.0); Immature Granulocytes % 0.6 %; Immature Granulocytes Absolute 0.05 #; Lymphocytes # 0.7 10*3/uL (1.4-4.0); Lymphocytes % 8.7 % (21.2-54.2); Mean Corpuscular HGB Conc 32.7 GM/DL (32-36); Mean Platelet Volume 11.9 FL (9.6-12.0); Monocytes % 14.2 % (1.7-12.7); Neutrophils % 71.7 % (38.7-73.9); Platelet Count 153 T/CUMM (130-400); Red Blood Count 3.16 MC/CUMM (3.8-5.5); Red Cell Distribution Width 15.9 % (9.3-17.3); White Blood Count 7.9 T/CUMM (4-12)
[2020-08-19 05:35] LABS: INR 1.2; PT Patient Result 13.1 SECS (10.5-12.0)
[2020-08-19 05:46] LABS: Calcium 8.7 MG/DL (8.5-10.1); Osmolality,Calculated 271.4 MOS/KG (273-304); Potassium 4.4 MMOL/L (3.5-5.1)
[2020-08-19] MEDS: LEVOTHYROXINE 75 MCG TABLET PO SCH (06:22)
[2020-08-19] MEDS ORDERED: traMADol 50 MG TABLET PO PRN (07:39)
[2020-08-19] MEDS ORDERED: MELATONIN 3 MG TABLET PO PRN (07:53)
[2020-08-19] MEDS: AMIODARONE 200 MG TABLET PO SCH (08:57)
[2020-08-19] MEDS: PANTOPRAZOLE 40 MG TABLET PO SCH ×2 (08:57→22:02)
[2020-08-19] MEDS: buPROPion SR 150 MG TABLET PO SCH (08:57)
[2020-08-19] MEDS: METOPROLOL TARTRATE 25 MG TABLET PO SCH ×2 (08:57→22:01)
[2020-08-19] MEDS: MEMANTINE 5 MG TABLET PO SCH (08:58)
[2020-08-19] MEDS: PREGABALIN 25 MG CAPSULE PO SCH ×2 (08:58→22:02)
[2020-08-19] MEDS: POLYETHYLENE GLYCOL POWDER 17 GM PACK PO SCH ×2 (08:58→22:04)
[2020-08-19] MEDS: ALFUZOSIN 10 MG TABLET PO SCH (08:58)
[2020-08-19 09:47] LABS: Platelet Estimate Normal
[2020-08-19 09:48] LABS: Anisocytosis Slight
[2020-08-19] MEDS: BISACODYL 5 MG TABLET PO SCH ×2 (14:37→22:02)
[2020-08-19] MEDS ORDERED: POLYETHYLENE GLYCOL POWDER 255 GM BOTTLE PO ONE (17:00)
[2020-08-19] MEDS ORDERED: MAGNESIUM CITRATE 300 ML BOTTLE PO ONE ×2 (20:00→21:00)
[2020-08-19] MEDS: traZODone 50 MG TABLET PO SCH (22:02)
[2020-08-19] MEDS: ATORVASTATIN 80 MG TABLET PO SCH (22:03)
[2020-08-20] MEDS: INSULIN LISPRO 100 UNIT/ML SUBCUT SCH ×4 (01:44→20:23)
[2020-08-20] MEDS: SODIUM CHLORIDE 0.45% 1,000 ML IV SCH ×3 (03:45→20:35)
[2020-08-20 05:47] LABS: Basophils % 0.5 % (0.0-0.8); Eosinophils # 0.3 10*3/uL (0.0-0.87); Eosinophils % 5.1 % (0.00-10.9); Hematocrit 25.8 VOL% (42.0-52.0); Hemoglobin 8.2 GM/DL (14.0-18.0); Immature Granulocytes % 0.5 %; Immature Granulocytes Absolute 0.03 #; Lymphocytes # 0.7 10*3/uL (1.4-4.0); Lymphocytes % 10.5 % (21.2-54.2); Mean Corpuscular HGB Conc 31.8 GM/DL (32-36); Mean Corpuscular Volume 88.7 FL (87-102); Mean Platelet Volume 11.1 FL (9.6-12.0); Neutrophils % 69.4 % (38.7-73.9); Platelet Count 178 T/CUMM (130-400); Red Blood Count 2.91 MC/CUMM (3.8-5.5); Red Cell Distribution Width 15.7 % (9.3-17.3); White Blood Count 6.5 T/CUMM (4-12)
[2020-08-20 05:51] LABS: INR 1.2; PT Patient Result 13.2 SECS (10.5-12.0)
[2020-08-20 06:01] LABS: Calcium 8.6 MG/DL (8.5-10.1); Osmolality,Calculated 270.4 MOS/KG (273-304); Potassium 3.3 MMOL/L (3.5-5.1)
[2020-08-20] MEDS: LEVOTHYROXINE 75 MCG TABLET PO SCH (06:43)
[2020-08-20] MEDS: BISACODYL 5 MG TABLET PO SCH (06:43)
[2020-08-20] MEDS ORDERED: POTASSIUM CHLORIDE RIDER 10 MEQ/100 ML PREMIX IV PRN (07:01)
[2020-08-20] MEDS ORDERED: LIDOCAINE 2% 5 ML VIAL ONE (07:55)
[2020-08-20] MEDS ORDERED: propofoL 200 MG/20 ML VIAL IV ONE (07:55)
[2020-08-20] MEDS: LACTATED RINGERS 1,000 ML IV SCH (08:20)
[2020-08-20] MEDS: ALFUZOSIN 10 MG TABLET PO SCH (09:35)
[2020-08-20] MEDS: buPROPion SR 150 MG TABLET PO SCH (09:36)
[2020-08-20] MEDS: METOPROLOL TARTRATE 25 MG TABLET PO SCH ×2 (09:36→20:32)
[2020-08-20] MEDS: AMIODARONE 200 MG TABLET PO SCH (09:36)
[2020-08-20] MEDS: PANTOPRAZOLE 40 MG TABLET PO SCH ×2 (09:36→20:33)
[2020-08-20] MEDS: PREGABALIN 25 MG CAPSULE PO SCH ×2 (09:37→20:33)
[2020-08-20] MEDS: MEMANTINE 5 MG TABLET PO SCH (09:37)
[2020-08-20] MEDS: POLYETHYLENE GLYCOL POWDER 17 GM PACK PO SCH ×2 (10:14→20:33)
[2020-08-20] MEDS: traZODone 50 MG TABLET PO SCH (20:32)
[2020-08-20] MEDS: ATORVASTATIN 80 MG TABLET PO SCH (20:33)
[2020-08-21] MEDS: INSULIN LISPRO 100 UNIT/ML SUBCUT SCH ×4 (00:03→17:45)
[2020-08-21] MEDS: SODIUM CHLORIDE 0.45% 1,000 ML IV SCH ×2 (00:41→12:17)
[2020-08-21 05:42] LABS: Basophils % 0.6 % (0.0-0.8); Eosinophils # 0.4 10*3/uL (0.0-0.87); Eosinophils % 5.4 % (0.00-10.9); Hematocrit 25.2 VOL% (42.0-52.0); Hemoglobin 7.8 GM/DL (14.0-18.0); Immature Granulocytes % 0.4 %; Immature Granulocytes Absolute 0.03 #; Lymphocytes # 0.8 10*3/uL (1.4-4.0); Mean Platelet Volume 10.3 FL (9.6-12.0); Neutrophils % 66.6 % (38.7-73.9); Platelet Count 151 T/CUMM (130-400); Red Blood Count 2.83 MC/CUMM (3.8-5.5); Red Cell Distribution Width 15.9 % (9.3-17.3); White Blood Count 6.7 T/CUMM (4-12)
[2020-08-21] MEDS: LEVOTHYROXINE 75 MCG TABLET PO SCH (05:47)
[2020-08-21 06:00] LABS: Calcium 8.3 MG/DL (8.5-10.1); Osmolality,Calculated 266.4 MOS/KG (273-304); Potassium 3.4 MMOL/L (3.5-5.1)
[2020-08-21] MEDS: PREGABALIN 25 MG CAPSULE PO SCH ×2 (09:16→20:55)
[2020-08-21] MEDS: ALFUZOSIN 10 MG TABLET PO SCH (09:16)
[2020-08-21] MEDS: AMIODARONE 200 MG TABLET PO SCH (09:17)
[2020-08-21] MEDS: buPROPion SR 150 MG TABLET PO SCH (09:17)
[2020-08-21] MEDS: PANTOPRAZOLE 40 MG TABLET PO SCH ×2 (09:17→20:55)
[2020-08-21] MEDS: METOPROLOL TARTRATE 25 MG TABLET PO SCH ×2 (09:17→20:55)
[2020-08-21] MEDS: MEMANTINE 5 MG TABLET PO SCH (09:17)
[2020-08-21] MEDS: POLYETHYLENE GLYCOL POWDER 17 GM PACK PO SCH ×2 (09:18→20:55)
[2020-08-21] MEDS: LACTATED RINGERS 1,000 ML IV SCH (09:22)
[2020-08-21] MEDS ORDERED: SODIUM CHLORIDE 0.9% 1,000 ML IV PRN (11:13)
[2020-08-21] MEDS ORDERED: POTASSIUM CHLORIDE 20 MEQ TABLET PO ONE ×2 (11:30→18:00)
[2020-08-21] MEDS: traZODone 50 MG TABLET PO SCH (20:55)
[2020-08-21] MEDS: ATORVASTATIN 80 MG TABLET PO SCH (20:55)
[2020-08-22] MEDS: INSULIN LISPRO 100 UNIT/ML SUBCUT SCH ×5 (00:13→23:16)
[2020-08-22] MEDS: SODIUM CHLORIDE 0.45% 1,000 ML IV SCH ×3 (00:41→22:20)
[2020-08-22 05:21] LABS: Basophils % 0.6 % (0.0-0.8); Eosinophils # 0.4 10*3/uL (0.0-0.87); Eosinophils % 6.3 % (0.00-10.9); Hemoglobin 9.2 GM/DL (14.0-18.0); Immature Granulocytes % 0.5 %; Immature Granulocytes Absolute 0.03 #; Lymphocytes # 0.8 10*3/uL (1.4-4.0); Lymphocytes % 13.1 % (21.2-54.2); Mean Corpuscular HGB Conc 31.7 GM/DL (32-36); Mean Corpuscular Volume 88.4 FL (87-102); Mean Platelet Volume 10.4 FL (9.6-12.0); Neutrophils % 62.5 % (38.7-73.9); Platelet Count 157 T/CUMM (130-400); Red Blood Count 3.28 MC/CUMM (3.8-5.5); Red Cell Distribution Width 15.4 % (9.3-17.3); White Blood Count 6.2 T/CUMM (4-12)
[2020-08-22 05:45] LABS: Anisocytosis 1+; Band Neutrophils 3 % (0-10); Eosinophils 3 % (0-10); Lymphocytes 12 % (20-55); Ovalocytes Few; Platelet Estimate Normal; Poikilocytosis Slight; Polychromasia Slight; Segmented Neutrophils 64 % (50-85); Tear Drop Cells Few; Total Cells Counted 100
[2020-08-22] MEDS: LEVOTHYROXINE 75 MCG TABLET PO SCH (05:48)
[2020-08-22 05:50] LABS: Calcium 8.6 MG/DL (8.5-10.1); Osmolality,Calculated 267.4 MOS/KG (273-304); Potassium 4.7 MMOL/L (3.5-5.1)
[2020-08-22] MEDS: buPROPion SR 150 MG TABLET PO SCH (09:29)
[2020-08-22] MEDS: ALFUZOSIN 10 MG TABLET PO SCH (09:29)
[2020-08-22] MEDS: MEMANTINE 5 MG TABLET PO SCH (09:29)
[2020-08-22] MEDS: PANTOPRAZOLE 40 MG TABLET PO SCH ×2 (09:29→21:07)
[2020-08-22] MEDS: AMIODARONE 200 MG TABLET PO SCH (09:29)
[2020-08-22] MEDS: PREGABALIN 25 MG CAPSULE PO SCH ×2 (09:30→21:07)
[2020-08-22] MEDS: METOPROLOL TARTRATE 25 MG TABLET PO SCH ×2 (09:30→21:07)
[2020-08-22] MEDS: POLYETHYLENE GLYCOL POWDER 17 GM PACK PO SCH ×2 (09:30→21:07)
[2020-08-22] MEDS ORDERED: hydrALAZINE 20 MG/1 ML VIAL IV PRN (10:39)
[2020-08-22] MEDS: amLODIPine 10 MG TABLET PO SCH (11:31)
[2020-08-22] MEDS: ATORVASTATIN 80 MG TABLET PO SCH (21:07)
[2020-08-22] MEDS: LOSARTAN 25 MG TABLET PO SCH (21:07)
[2020-08-22] MEDS: traZODone 50 MG TABLET PO SCH (21:07)
[2020-08-23] MEDS: SODIUM CHLORIDE 0.45% 1,000 ML IV SCH (02:49)
[2020-08-23 06:16] LABS: Basophils % 0.6 % (0.0-0.8); Eosinophils # 0.3 10*3/uL (0.0-0.87); Eosinophils % 5.1 % (0.00-10.9); Hematocrit 29.1 VOL% (42.0-52.0); Hemoglobin 9.3 GM/DL (14.0-18.0); Immature Granulocytes % 0.5 %; Immature Granulocytes Absolute 0.03 #; Lymphocytes # 0.8 10*3/uL (1.4-4.0); Lymphocytes % 12.7 % (21.2-54.2); Mean Platelet Volume 10.9 FL (9.6-12.0); Monocytes % 13.5 % (1.7-12.7); Neutrophils % 67.6 % (38.7-73.9); Platelet Count 169 T/CUMM (130-400); Red Blood Count 3.27 MC/CUMM (3.8-5.5); Red Cell Distribution Width 15.4 % (9.3-17.3); White Blood Count 6.3 T/CUMM (4-12)
[2020-08-23] MEDS: INSULIN LISPRO 100 UNIT/ML SUBCUT SCH ×3 (06:32→19:21)
[2020-08-23] MEDS: LEVOTHYROXINE 75 MCG TABLET PO SCH (06:33)
[2020-08-23 06:40] LABS: Calcium 8.4 MG/DL (8.5-10.1)
[2020-08-23] MEDS: amLODIPine 10 MG TABLET PO SCH (09:07)
[2020-08-23] MEDS: METOPROLOL TARTRATE 25 MG TABLET PO SCH ×2 (09:07→21:29)
[2020-08-23] MEDS: PREGABALIN 25 MG CAPSULE PO SCH ×2 (09:07→21:28)
[2020-08-23] MEDS: POLYETHYLENE GLYCOL POWDER 17 GM PACK PO SCH ×2 (09:07→21:29)
[2020-08-23] MEDS: PANTOPRAZOLE 40 MG TABLET PO SCH ×2 (09:08→21:28)
[2020-08-23] MEDS: AMIODARONE 200 MG TABLET PO SCH (09:08)
[2020-08-23] MEDS: LOSARTAN 25 MG TABLET PO SCH (09:08)
[2020-08-23] MEDS: MEMANTINE 5 MG TABLET PO SCH (09:08)
[2020-08-23] MEDS: buPROPion SR 150 MG TABLET PO SCH (09:10)
[2020-08-23] MEDS: ALFUZOSIN 10 MG TABLET PO SCH (09:10)
[2020-08-23] MEDS ORDERED: fentaNYL 100 MCG/2 ML VIAL ONE (13:22)
[2020-08-23] MEDS ORDERED: TISSUE ADHESIVE 1 EACH APPLICATOR TOP ONE (13:30)
[2020-08-23] MEDS ORDERED: DEXAMETHASONE 4 MG/1 ML VIAL ONE (13:30)
[2020-08-23] MEDS ORDERED: LIDOCAINE 1% 20 ML VIAL ONE (13:31)
[2020-08-23] MEDS ORDERED: LACTATED RINGERS 1,000 ML IV SCH (14:00)
[2020-08-23] MEDS ORDERED: ceFAZolin 2,000 MG/50 ML DUPLEX IV ONE (14:00)
[2020-08-23] MEDS ORDERED: ceFAZolin 1,000 MG VIAL ONE ×2 (14:19→14:20)
[2020-08-23] MEDS ORDERED: propofoL 200 MG/20 ML VIAL IV ONE (14:31)
[2020-08-23] MEDS ORDERED: ETOMIDATE 40 MG/20 ML VIAL IV ONE (14:31)
[2020-08-23] MEDS ORDERED: LIDOCAINE 2% 5 ML VIAL ONE (14:31)
[2020-08-23] MEDS: ATORVASTATIN 80 MG TABLET PO SCH (21:28)
[2020-08-23] MEDS: traZODone 50 MG TABLET PO SCH (21:28)
[2020-08-23] MEDS: LOSARTAN 50 MG TABLET PO SCH (21:28)
[2020-08-24] MEDS: INSULIN LISPRO 100 UNIT/ML SUBCUT SCH ×3 (00:16→13:36)
[2020-08-24] MEDS: LEVOTHYROXINE 75 MCG TABLET PO SCH (05:48)
[2020-08-24 06:12] LABS: Basophils % 0.4 % (0.0-0.8); Eosinophils # 0.4 10*3/uL (0.0-0.87); Eosinophils % 5.4 % (0.00-10.9); Hematocrit 30.9 VOL% (42.0-52.0); Hemoglobin 9.8 GM/DL (14.0-18.0); Immature Granulocytes % 0.4 %; Immature Granulocytes Absolute 0.03 #; Lymphocytes # 0.7 10*3/uL (1.4-4.0); Lymphocytes % 9.7 % (21.2-54.2); Mean Corpuscular HGB Conc 31.7 GM/DL (32-36); Mean Platelet Volume 10.6 FL (9.6-12.0); Monocytes % 12.7 % (1.7-12.7); Neutrophils % 71.4 % (38.7-73.9); Platelet Count 189 T/CUMM (130-400); Red Blood Count 3.51 MC/CUMM (3.8-5.5); Red Cell Distribution Width 15.3 % (9.3-17.3); White Blood Count 6.7 T/CUMM (4-12)
[2020-08-24] MEDS: ALFUZOSIN 10 MG TABLET PO SCH (08:46)
[2020-08-24] MEDS: buPROPion SR 150 MG TABLET PO SCH (08:46)
[2020-08-24] MEDS: LOSARTAN 50 MG TABLET PO SCH (08:46)
[2020-08-24] MEDS: POLYETHYLENE GLYCOL POWDER 17 GM PACK PO SCH (08:46)
[2020-08-24] MEDS: PANTOPRAZOLE 40 MG TABLET PO SCH (08:47)
[2020-08-24] MEDS: PREGABALIN 25 MG CAPSULE PO SCH (08:47)
[2020-08-24] MEDS: AMIODARONE 200 MG TABLET PO SCH (08:47)
[2020-08-24] MEDS: amLODIPine 10 MG TABLET PO SCH (08:47)
[2020-08-24] MEDS: MEMANTINE 5 MG TABLET PO SCH (08:47)
[2020-08-24] MEDS: METOPROLOL TARTRATE 25 MG TABLET PO SCH (08:47)
[2020-08-24 12:09] VITALS: BP 133/68
== END 2020-08-24 13:20 | disposition swing bed (61) | DRG 982 ==
LOC: N.ED 11:03 → SUATTDRO 14:06 → N.EDINP 14:06 → N.TELEN 15:23
PROVIDERS: ADMIT Internal Medicine; ATTEND Internal Medicine

== ENCOUNTER 2020-09-18 16:14 | Inpatient (IN) ==
[2020-09-18] MEDS ORDERED: ONDANSETRON 4 MG/2 ML VIAL IV ONE (21:39)
[2020-09-18 23:02] LABS: INR 4.1
[2020-09-18 23:05] LABS: PT Patient Result 41.6 SECS (10.5-12.0)
[2020-09-18 23:19] LABS: Albumin 3.2 G/DL (3.4-5.0); Bilirubin,Total 0.5 MG/DL (0.20-1.00); Calcium 8.7 MG/DL (8.5-10.1); Osmolality,Calculated 299.3 MOS/KG (273-304); Potassium 4.2 MMOL/L (3.5-5.1); Total Protein 7.1 G/DL (6.4-8.2)
[2020-09-18 23:30] LABS: Basophils # 0.1 10*3/uL (0.0-0.2); Basophils % 0.7 % (0.0-0.8); Eosinophils # 0.3 10*3/uL (0.0-0.87); Eosinophils % 3.1 % (0.00-10.9); Hematocrit 20.7 VOL% (42.0-52.0); Hemoglobin 6.6 GM/DL (14.0-18.0); Immature Granulocytes % 1.9 %; Immature Granulocytes Absolute 0.16 #; Lymphocytes # 1.2 10*3/uL (1.4-4.0); Lymphocytes % 14.3 % (21.2-54.2); Mean Corpuscular HGB Conc 31.9 GM/DL (32-36); Mean Corpuscular Volume 90.4 FL (87-102); Mean Platelet Volume 11.7 FL (9.6-12.0); Monocytes % 14.4 % (1.7-12.7); NRBC # 0.04 10*3/uL; Neutrophils % 65.6 % (38.7-73.9); Platelet Count 153 T/CUMM (130-400); Red Blood Count 2.29 MC/CUMM (3.8-5.5); Red Cell Distribution Width 16.4 % (9.3-17.3); White Blood Count 8.5 T/CUMM (4-12)
[2020-09-19] MEDS ORDERED: SODIUM CHLORIDE 0.9% 1,000 ML IV PRN (00:08)
[2020-09-19] MEDS ORDERED: PANTOPRAZOLE 40 MG VIAL IV STA (00:10)
[2020-09-19 00:19] LABS: Bilirubin,Urine Negative (Negative); Blood, Urine Negative (Negative); Glucose,Urine (UA) Negative (Negative); Hyaline Casts,Urine 6 /LPF (0-3); Ketones,Urine Negative (Negative); Mucus,Urine Occasional /LPF (Occasional); Nitrite,Urine Negative (Negative); Protein,Urine Negative; RBC,Urine <1 /HPF (0-4); Urine Appearance CLEAR (Clear); Urine Color Straw (Yellow); Urine Specific Gravity 1.013 (1.001-1.035); Urine Urobilinogen < 2.0 EU/DL (0.2-1.0)
[2020-09-19] MEDS ORDERED: MORPHINE 2 MG/1 ML SYRINGE IV PRN (01:10)
[2020-09-19] MEDS ORDERED: hydrALAZINE 20 MG/1 ML VIAL IV PRN (01:10)
[2020-09-19] MEDS ORDERED: DEXTROSE 50% 25 GM/50 ML VIAL IV PRN (01:10)
[2020-09-19] MEDS ORDERED: ACETAMINOPHEN 325 MG TABLET PO PRN (01:10)
[2020-09-19] MEDS ORDERED: GLUCAGON 1 MG VIAL IM PRN (01:10)
[2020-09-19] MEDS ORDERED: diphenhydrAMINE CAP 25 MG CAPSULE PO PRN (01:10)
[2020-09-19] MEDS ORDERED: NICOTINE 21 MG/24 HR PATCH TRANSDERM PRN (01:10)
[2020-09-19] MEDS ORDERED: CALCIUM CARBONATE CHEW 500 MG TABLET PO PRN (01:10)
[2020-09-19 07:08] LABS: Basophils # 0.1 10*3/uL (0.0-0.2); Basophils % 0.5 % (0.0-0.8); Eosinophils # 0.4 10*3/uL (0.0-0.87); Eosinophils % 3.6 % (0.00-10.9); Hematocrit 22.4 VOL% (42.0-52.0); Lymphocytes # 1.4 10*3/uL (1.4-4.0); Lymphocytes % 14.9 % (21.2-54.2); Mean Corpuscular HGB Conc 31.3 GM/DL (32-36); Mean Corpuscular Volume 91.8 FL (87-102); Monocytes % 11.2 % (1.7-12.7); NRBC # 0.03 10*3/uL; Neutrophils % 68.8 % (38.7-73.9); Platelet Count 172 T/CUMM (130-400); Red Blood Count 2.44 MC/CUMM (3.8-5.5); Red Cell Distribution Width 16.5 % (9.3-17.3); White Blood Count 9.7 T/CUMM (4-12)
[2020-09-19] MEDS: PANTOPRAZOLE 40 MG VIAL IV SCH ×2 (09:26→21:56)
[2020-09-19] MEDS: AMIODARONE 200 MG TABLET PO SCH (16:55)
[2020-09-19 17:23] LABS: Hematocrit 24.1 VOL% (42.0-52.0); Hemoglobin 7.9 GM/DL (14.0-18.0)
[2020-09-19] MEDS ORDERED: MAGNESIUM CITRATE 300 ML BOTTLE PO ONE (18:40)
[2020-09-19] MEDS: ATORVASTATIN 80 MG TABLET PO SCH (21:56)
[2020-09-19] MEDS: METOPROLOL TARTRATE 25 MG TABLET PO SCH (21:56)
[2020-09-20] MEDS: ONDANSETRON 4 MG/2 ML VIAL IV PRN ×2 (04:07→21:27)
[2020-09-20 07:32] LABS: Basophils % 0.4 % (0.0-0.8); Eosinophils # 0.2 10*3/uL (0.0-0.87); Eosinophils % 2.7 % (0.00-10.9); Hematocrit 22.4 VOL% (42.0-52.0); Hemoglobin 7.4 GM/DL (14.0-18.0); Immature Granulocytes % 0.8 %; Immature Granulocytes Absolute 0.07 #; Lymphocytes # 0.9 10*3/uL (1.4-4.0); Lymphocytes % 10.7 % (21.2-54.2); Mean Corpuscular Volume 91.4 FL (87-102); Mean Platelet Volume 10.9 FL (9.6-12.0); Monocytes % 10.9 % (1.7-12.7); NRBC # 0.02 10*3/uL; Neutrophils % 74.5 % (38.7-73.9); Platelet Count 119 T/CUMM (130-400); Red Blood Count 2.45 MC/CUMM (3.8-5.5); Red Cell Distribution Width 17.3 % (9.3-17.3); White Blood Count 8.2 T/CUMM (4-12)
[2020-09-20 08:11] LABS: Albumin 2.7 G/DL (3.4-5.0); Bilirubin,Total 0.4 MG/DL (0.20-1.00); Calcium 8.5 MG/DL (8.5-10.1); Osmolality,Calculated 290.7 MOS/KG (273-304); Potassium 3.9 MMOL/L (3.5-5.1); Total Protein 5.9 G/DL (6.4-8.2)
[2020-09-20] MEDS ORDERED: SODIUM CHLORIDE 0.9% 1,000 ML IV PRN (08:51)
[2020-09-20] MEDS ORDERED: FUROSEMIDE 20 MG/2 ML VIAL IV PRN (08:51)
[2020-09-20] MEDS: METOPROLOL TARTRATE 25 MG TABLET PO SCH ×2 (09:29→21:02)
[2020-09-20] MEDS: AMIODARONE 200 MG TABLET PO SCH (09:29)
[2020-09-20] MEDS: PANTOPRAZOLE 40 MG VIAL IV SCH ×2 (09:35→21:01)
[2020-09-20] MEDS: METOCLOPRAMIDE 10 MG/2 ML VIAL IV SCH ×3 (12:36→23:18)
[2020-09-20] MEDS ORDERED: traMADol 50 MG TABLET PO PRN (13:36)
[2020-09-20] MEDS: MEMANTINE 5 MG TABLET PO SCH (14:06)
[2020-09-20] MEDS: POLYETHYLENE GLYCOL POWDER 17 GM PACK PO SCH ×2 (14:06→21:00)
[2020-09-20] MEDS: buPROPion SR 150 MG TABLET PO SCH (14:06)
[2020-09-20] MEDS: PREGABALIN 50 MG CAPSULE PO SCH ×2 (14:06→21:02)
[2020-09-20] MEDS: ALFUZOSIN 10 MG TABLET PO SCH (14:06)
[2020-09-20] MEDS: FUROSEMIDE 20 MG/2 ML VIAL IV PRN ×2 (18:48→21:00)
[2020-09-20] MEDS: MELATONIN 3 MG TABLET PO SCH (21:01)
[2020-09-20] MEDS: ATORVASTATIN 80 MG TABLET PO SCH (21:02)
[2020-09-20] MEDS: traZODone 50 MG TABLET PO SCH (21:02)
[2020-09-21] MEDS: METOCLOPRAMIDE 10 MG/2 ML VIAL IV SCH ×4 (05:20→23:38)
[2020-09-21] MEDS: LEVOTHYROXINE 75 MCG TABLET PO SCH (05:21)
[2020-09-21 07:07] LABS: Basophils % 0.4 % (0.0-0.8); Eosinophils # 0.6 10*3/uL (0.0-0.87); Eosinophils % 7.9 % (0.00-10.9); Hematocrit 27.3 VOL% (42.0-52.0); Hemoglobin 8.7 GM/DL (14.0-18.0); Immature Granulocytes Absolute 0.07 #; Lymphocytes # 0.8 10*3/uL (1.4-4.0); Lymphocytes % 11.4 % (21.2-54.2); Mean Corpuscular HGB Conc 31.9 GM/DL (32-36); Mean Corpuscular Volume 92.2 FL (87-102); Mean Platelet Volume 11.3 FL (9.6-12.0); Monocytes % 14.7 % (1.7-12.7); NRBC # 0.02 10*3/uL; Neutrophils % 64.6 % (38.7-73.9); Platelet Count 117 T/CUMM (130-400); Red Blood Count 2.96 MC/CUMM (3.8-5.5); Red Cell Distribution Width 18.1 % (9.3-17.3); White Blood Count 6.9 T/CUMM (4-12)
[2020-09-21 07:15] LABS: INR 2.9
[2020-09-21 07:16] LABS: PT Patient Result 29.9 SECS (10.5-12.0)
[2020-09-21 07:27] LABS: Hypochromasia 1+; Microcytosis 1+
[2020-09-21 07:28] LABS: Anisocytosis 1+; Ovalocytes Slight; Platelet Estimate Adequate; Polychromasia Slight; Tear Drop Cells Slight
[2020-09-21 07:34] LABS: Calcium 8.2 MG/DL (8.5-10.1); Osmolality,Calculated 292.4 MOS/KG (273-304); Potassium 3.6 MMOL/L (3.5-5.1)
[2020-09-21] MEDS: buPROPion SR 150 MG TABLET PO SCH (09:37)
[2020-09-21] MEDS: PREGABALIN 50 MG CAPSULE PO SCH ×2 (09:37→20:59)
[2020-09-21] MEDS: ALFUZOSIN 10 MG TABLET PO SCH (09:37)
[2020-09-21] MEDS: POLYETHYLENE GLYCOL POWDER 17 GM PACK PO SCH ×2 (09:37→20:58)
[2020-09-21] MEDS: MEMANTINE 5 MG TABLET PO SCH (09:38)
[2020-09-21] MEDS: AMIODARONE 200 MG TABLET PO SCH (09:38)
[2020-09-21] MEDS: METOPROLOL TARTRATE 25 MG TABLET PO SCH ×2 (09:38→20:59)
[2020-09-21] MEDS: PANTOPRAZOLE 40 MG VIAL IV SCH ×2 (09:41→21:02)
[2020-09-21] MEDS: MELATONIN 3 MG TABLET PO SCH (20:58)
[2020-09-21] MEDS: ATORVASTATIN 80 MG TABLET PO SCH (20:59)
[2020-09-21] MEDS: traZODone 50 MG TABLET PO SCH (20:59)
[2020-09-22 05:23] LABS: Basophils % 0.4 % (0.0-0.8); Eosinophils # 0.5 10*3/uL (0.0-0.87); Eosinophils % 7.3 % (0.00-10.9); Hematocrit 26.4 VOL% (42.0-52.0); Hemoglobin 8.5 GM/DL (14.0-18.0); Immature Granulocytes % 0.7 %; Immature Granulocytes Absolute 0.05 #; Lymphocytes # 0.9 10*3/uL (1.4-4.0); Lymphocytes % 12.4 % (21.2-54.2); Mean Corpuscular HGB Conc 32.2 GM/DL (32-36); Mean Corpuscular Volume 91.7 FL (87-102); Mean Platelet Volume 10.8 FL (9.6-12.0); Monocytes % 14.1 % (1.7-12.7); Neutrophils % 65.1 % (38.7-73.9); Platelet Count 124 T/CUMM (130-400); Red Blood Count 2.88 MC/CUMM (3.8-5.5); Red Cell Distribution Width 18.2 % (9.3-17.3); White Blood Count 7.4 T/CUMM (4-12)
[2020-09-22 05:35] LABS: INR 2.8; PT Patient Result 29.7 SECS (10.5-12.0)
[2020-09-22] MEDS: LEVOTHYROXINE 75 MCG TABLET PO SCH (05:43)
[2020-09-22] MEDS: METOCLOPRAMIDE 10 MG/2 ML VIAL IV SCH ×3 (05:43→19:13)
[2020-09-22 05:45] LABS: Hypochromasia 1+; Microcytosis 1+
[2020-09-22 05:46] LABS: Calcium 8.3 MG/DL (8.5-10.1); Calcium 8.4 MG/DL (8.5-10.1); Osmolality,Calculated 285.5 MOS/KG (273-304); Osmolality,Calculated 287.4 MOS/KG (273-304); Potassium 3.6 MMOL/L (3.5-5.1); Potassium 3.7 MMOL/L (3.5-5.1)
[2020-09-22] MEDS: POLYETHYLENE GLYCOL POWDER 17 GM PACK PO SCH ×3 (11:01→21:16)
[2020-09-22] MEDS: PANTOPRAZOLE 40 MG VIAL IV SCH ×2 (11:01→21:16)
[2020-09-22] MEDS: MEMANTINE 5 MG TABLET PO SCH (11:02)
[2020-09-22] MEDS: METOPROLOL TARTRATE 25 MG TABLET PO SCH ×2 (11:02→21:16)
[2020-09-22] MEDS: AMIODARONE 200 MG TABLET PO SCH (11:02)
[2020-09-22] MEDS: buPROPion SR 150 MG TABLET PO SCH (11:03)
[2020-09-22] MEDS: PREGABALIN 50 MG CAPSULE PO SCH ×2 (11:03→21:15)
[2020-09-22] MEDS: ALFUZOSIN 10 MG TABLET PO SCH (11:03)
[2020-09-22] MEDS: MELATONIN 3 MG TABLET PO SCH (21:15)
[2020-09-22] MEDS: traZODone 50 MG TABLET PO SCH (21:15)
[2020-09-22] MEDS: ATORVASTATIN 80 MG TABLET PO SCH (21:16)
[2020-09-23] MEDS: METOCLOPRAMIDE 10 MG/2 ML VIAL IV SCH ×3 (01:04→13:15)
[2020-09-23 05:46] LABS: Basophils # 0.1 10*3/uL (0.0-0.2); Basophils % 0.8 % (0.0-0.8); Eosinophils # 0.5 10*3/uL (0.0-0.87); Eosinophils % 7.6 % (0.00-10.9); Hematocrit 26.6 VOL% (42.0-52.0); Hemoglobin 8.6 GM/DL (14.0-18.0); Immature Granulocytes % 0.5 %; Immature Granulocytes Absolute 0.03 #; Lymphocytes % 16.3 % (21.2-54.2); Mean Corpuscular HGB Conc 32.3 GM/DL (32-36); Mean Platelet Volume 11.4 FL (9.6-12.0); Monocytes % 15.5 % (1.7-12.7); Neutrophils % 59.3 % (38.7-73.9); Platelet Count 123 T/CUMM (130-400); Red Blood Count 2.89 MC/CUMM (3.8-5.5); Red Cell Distribution Width 18.4 % (9.3-17.3); White Blood Count 6.1 T/CUMM (4-12)
[2020-09-23 05:51] LABS: Calcium 8.4 MG/DL (8.5-10.1); Osmolality,Calculated 273.2 MOS/KG (273-304); Potassium 3.6 MMOL/L (3.5-5.1)
[2020-09-23 06:20] LABS: INR 2.1; PT Patient Result 22.2 SECS (10.5-12.0)
[2020-09-23 06:24] LABS: Anisocytosis 1+; Hypochromasia 1+; Microcytosis 1+
[2020-09-23 06:25] LABS: Ovalocytes Few; Platelet Estimate Adequate; Polychromasia Slight
[2020-09-23] MEDS: LEVOTHYROXINE 75 MCG TABLET PO SCH (06:37)
[2020-09-23] MEDS: PREGABALIN 50 MG CAPSULE PO SCH (10:06)
[2020-09-23] MEDS: buPROPion SR 150 MG TABLET PO SCH (10:06)
[2020-09-23] MEDS: AMIODARONE 200 MG TABLET PO SCH (10:06)
[2020-09-23] MEDS: POLYETHYLENE GLYCOL POWDER 17 GM PACK PO SCH (10:07)
[2020-09-23] MEDS: ALFUZOSIN 10 MG TABLET PO SCH (10:07)
[2020-09-23] MEDS: METOPROLOL TARTRATE 25 MG TABLET PO SCH (10:07)
[2020-09-23] MEDS: MEMANTINE 5 MG TABLET PO SCH (10:07)
[2020-09-23] MEDS: PANTOPRAZOLE 40 MG VIAL IV SCH (10:08)
[2020-09-23 11:56] VITALS: BP 138/65
== END 2020-09-23 15:05 | disposition home or self-care (01) | DRG 813 ==
LOC: N.EDINP 16:14 → N.ED 16:14 → SUATTDRO 09-19 01:10 → N.EDINP 09-19 05:22 → N.4E 09-19 05:55 → SUATTDRO 09-19 09:46
PROVIDERS: ADMIT Hospitalist; ATTEND Hospitalist

== ENCOUNTER 2020-11-24 13:10 | Observation (INO) ==
[2020-11-24 13:57] LABS: Basophils # 0.1 10*3/uL (0.0-0.2); Basophils % 0.8 % (0.0-0.8); Eosinophils # 0.2 10*3/uL (0.0-0.87); Eosinophils % 2.9 % (0.00-10.9); Hematocrit 37.4 VOL% (42.0-52.0); Hemoglobin 11.5 GM/DL (14.0-18.0); Immature Granulocytes % 0.7 %; Immature Granulocytes Absolute 0.05 #; Lymphocytes # 0.7 10*3/uL (1.4-4.0); Lymphocytes % 9.6 % (21.2-54.2); Mean Corpuscular HGB Conc 30.7 GM/DL (32-36); Mean Corpuscular Volume 90.3 FL (87-102); Mean Platelet Volume 10.8 FL (9.6-12.0); Monocytes % 11.5 % (1.7-12.7); Neutrophils % 74.5 % (38.7-73.9); Platelet Count 212 T/CUMM (130-400); Red Blood Count 4.14 MC/CUMM (3.8-5.5); Red Cell Distribution Width 16.3 % (9.3-17.3); White Blood Count 7.7 T/CUMM (4-12)
[2020-11-24 14:20] LABS: Albumin 3.1 G/DL (3.4-5.0); Bilirubin,Total 0.6 MG/DL (0.20-1.00); Osmolality,Calculated 273.1 MOS/KG (273-304); Potassium 4.7 MMOL/L (3.5-5.1); Total Protein 8.1 G/DL (6.4-8.2)
[2020-11-24 14:24] LABS: Calcium 5.2 MG/DL (8.5-10.1)
[2020-11-24] MEDS ORDERED: CALCIUM GLUCONATE 1,000 MG in SODIUM CHLORIDE 0.9% 100 ML IV ONE ×3 (14:38→20:30)
[2020-11-24] MEDS ORDERED: MAGNESIUM SULF RIDER 2 GM/50 ML PREMIX IV ONE (15:52)
[2020-11-24] MEDS ORDERED: ACETAMINOPHEN 325 MG TABLET PO PRN (16:06)
[2020-11-24] MEDS ORDERED: GLUCAGON 1 MG VIAL IM PRN (16:06)
[2020-11-24] MEDS ORDERED: DEXTROSE 50% 25 GM/50 ML VIAL IV PRN (16:06)
[2020-11-24] MEDS ORDERED: ALBUTEROL 2.5 MG/3 ML NEB RESP TX PRN (16:06)
[2020-11-24] MEDS ORDERED: ONDANSETRON 4 MG/2 ML VIAL IV PRN (16:06)
[2020-11-24] MEDS ORDERED: LACTULOSE 20 GM/30 ML UDCUP PO PRN (16:06)
[2020-11-24 17:29] LABS: Bilirubin,Urine Negative (Negative); Blood, Urine Negative (Negative); Glucose,Urine (UA) 150 mg/dL (Negative); Ketones,Urine Negative (Negative); Nitrite,Urine Negative (Negative); Protein,Urine Negative; RBC,Urine 4 /HPF (0-4); Urine Appearance CLEAR (Clear); Urine Color Straw (Yellow); Urine Specific Gravity 1.009 (1.001-1.035); Urine Urobilinogen < 2.0 EU/DL (0.2-1.0)
[2020-11-24] MEDS ORDERED: MUPIROCIN 2% OINT 22 GM TUBE TOP PRN (18:21)
[2020-11-24 19:02] LABS: INR 1.1; PT Patient Result 11.9 SECS (10.5-12.0)
[2020-11-24] MEDS: METOPROLOL TARTRATE 25 MG TABLET PO SCH (21:19)
[2020-11-24] MEDS: MELATONIN 3 MG TABLET PO SCH (21:19)
[2020-11-24] MEDS: PREGABALIN 25 MG CAPSULE PO SCH (21:19)
[2020-11-24] MEDS: ATORVASTATIN 80 MG TABLET PO SCH (21:20)
[2020-11-24] MEDS: SODIUM CHLORIDE 0.9% 1,000 ML IV SCH (21:20)
[2020-11-24] MEDS: PANTOPRAZOLE 40 MG TABLET PO SCH (21:20)
[2020-11-24] MEDS: traZODone 50 MG TABLET PO SCH (21:26)
[2020-11-24 21:46] LABS: Potassium 4.4 MMOL/L (3.5-5.1)
[2020-11-24 21:53] LABS: Calcium 5.2 MG/DL (8.5-10.1)
[2020-11-25 05:10] LABS: Basophils # 0.1 10*3/uL (0.0-0.2); Eosinophils # 0.3 10*3/uL (0.0-0.87); Eosinophils % 4.5 % (0.00-10.9); Hematocrit 35.1 VOL% (42.0-52.0); Hemoglobin 10.8 GM/DL (14.0-18.0); Immature Granulocytes % 0.5 %; Immature Granulocytes Absolute 0.03 #; Lymphocytes # 0.8 10*3/uL (1.4-4.0); Lymphocytes % 13.1 % (21.2-54.2); Mean Corpuscular HGB Conc 30.8 GM/DL (32-36); Mean Corpuscular Volume 90.2 FL (87-102); Mean Platelet Volume 10.4 FL (9.6-12.0); Neutrophils % 67.9 % (38.7-73.9); Platelet Count 217 T/CUMM (130-400); Red Blood Count 3.89 MC/CUMM (3.8-5.5); Red Cell Distribution Width 16.2 % (9.3-17.3); White Blood Count 5.9 T/CUMM (4-12)
[2020-11-25 05:22] LABS: INR 1.1; PT Patient Result 12.1 SECS (10.5-12.0)
[2020-11-25] MEDS: LEVOTHYROXINE 75 MCG TABLET PO SCH (05:37)
[2020-11-25 06:00] LABS: Alanine Aminotransferase < 9 U/L (16-61); Albumin 2.7 G/DL (3.4-5.0); Alkaline Phosphatase 119 U/L (45-117); Aspartate Amino Transferase 15 U/L (0-37); Blood Urea Nitrogen 11 MG/DL (7-18); Carbon Dioxide 20 MMOL/L (21-32); Estimated Glom Filtration Rate 86 ML/MIN; Glucose 128 MG/DL (74-106); Osmolality,Calculated 268.2 MOS/KG (273-304); Potassium 4.3 MMOL/L (3.5-5.1); Sodium 134 MMOL/L (136-145); Total Protein 7.2 G/DL (6.4-8.2)
[2020-11-25 06:13] LABS: Calcium 5.6 MG/DL (8.5-10.1)
[2020-11-25] MEDS ORDERED: PANTOPRAZOLE 40 MG TABLET PO SCH (09:00)
[2020-11-25] MEDS ORDERED: CHOLECALCIFEROL 1,000 UNIT TABLET PO SCH (09:00)
[2020-11-25] MEDS ORDERED: CALCIUM GLUCONATE 2,000 MG in SODIUM CHLORIDE 0.9% 100 ML IV ONE (09:00)
[2020-11-25] MEDS: DOCUSATE SODIUM 100 MG CAPSULE PO SCH (09:41)
[2020-11-25] MEDS: PREGABALIN 25 MG CAPSULE PO SCH ×2 (09:42→20:28)
[2020-11-25] MEDS: buPROPion SR 150 MG TABLET PO SCH (09:42)
[2020-11-25] MEDS: MEMANTINE 10 MG TABLET PO SCH (09:42)
[2020-11-25] MEDS: PANTOPRAZOLE 40 MG TABLET PO SCH ×2 (09:42→20:27)
[2020-11-25] MEDS: ALFUZOSIN 10 MG TABLET PO SCH (09:42)
[2020-11-25] MEDS: AMIODARONE 200 MG TABLET PO SCH (09:43)
[2020-11-25] MEDS: METOPROLOL TARTRATE 25 MG TABLET PO SCH ×2 (09:43→20:27)
[2020-11-25 15:06] LABS: Albumin 2.6 G/DL (3.4-5.0); Bilirubin,Total 0.8 MG/DL (0.20-1.00); Osmolality,Calculated 271.2 MOS/KG (273-304); Potassium 4.1 MMOL/L (3.5-5.1); Total Protein 7.2 G/DL (6.4-8.2)
[2020-11-25 15:27] LABS: Calcium 5.7 MG/DL (8.5-10.1)
[2020-11-25] MEDS: SODIUM CHLORIDE 0.9% 1,000 ML IV SCH ×2 (15:28→16:58)
[2020-11-25] MEDS: CHOLECALCIFEROL 5,000 UNIT TABLET PO SCH ×2 (15:58→20:27)
[2020-11-25] MEDS: MELATONIN 3 MG TABLET PO SCH (20:27)
[2020-11-25] MEDS: POTASSIUM PHOS/SOD PHOS POWDER 250 MG PACK PO SCH (20:27)
[2020-11-25] MEDS: ATORVASTATIN 80 MG TABLET PO SCH (20:28)
[2020-11-25] MEDS: traZODone 50 MG TABLET PO SCH (20:28)
[2020-11-26 04:53] LABS: Basophils % 0.8 % (0.0-0.8); Eosinophils # 0.3 10*3/uL (0.0-0.87); Eosinophils % 6.4 % (0.00-10.9); Hematocrit 34.3 VOL% (42.0-52.0); Hemoglobin 10.7 GM/DL (14.0-18.0); Immature Granulocytes % 0.6 %; Immature Granulocytes Absolute 0.03 #; Lymphocytes # 0.7 10*3/uL (1.4-4.0); Lymphocytes % 13.5 % (21.2-54.2); Mean Corpuscular HGB Conc 31.2 GM/DL (32-36); Mean Corpuscular Volume 89.6 FL (87-102); Mean Platelet Volume 10.5 FL (9.6-12.0); Monocytes % 14.1 % (1.7-12.7); Neutrophils % 64.6 % (38.7-73.9); Platelet Count 197 T/CUMM (130-400); Red Blood Count 3.83 MC/CUMM (3.8-5.5); Red Cell Distribution Width 15.9 % (9.3-17.3)
[2020-11-26 05:02] LABS: INR 1.1; PT Patient Result 12.1 SECS (10.5-12.0)
[2020-11-26 05:11] LABS: Alanine Aminotransferase < 9 U/L (16-61); Albumin 2.5 G/DL (3.4-5.0); Alkaline Phosphatase 120 U/L (45-117); Aspartate Amino Transferase 15 U/L (0-37); Blood Urea Nitrogen 12 MG/DL (7-18); Carbon Dioxide 18 MMOL/L (21-32); Estimated Glom Filtration Rate 86 ML/MIN; Glucose 153 MG/DL (74-106); Osmolality,Calculated 270.2 MOS/KG (273-304); Potassium 4.1 MMOL/L (3.5-5.1); Sodium 134 MMOL/L (136-145)
[2020-11-26 05:18] LABS: Calcium 5.6 MG/DL (8.5-10.1)
[2020-11-26 05:20] LABS: Risk Ratio 2.94; Thyroid Stimulating Hormone 7.52 uIU/ml (0.358-3.74); VLDL Cholesterol 16.6 MG/DL
[2020-11-26] MEDS ORDERED: CALCIUM GLUCONATE 1,000 MG in SODIUM CHLORIDE 0.9% 100 ML IV ONE (05:37)
[2020-11-26] MEDS: LEVOTHYROXINE 75 MCG TABLET PO SCH (06:23)
[2020-11-26] MEDS ORDERED: CALCIUM GLUCONATE 2,000 MG in SODIUM CHLORIDE 0.9% 100 ML IV ONE (07:18)
[2020-11-26 08:33] LABS: Free T4 (Free Thyroxine) 1.19 NG/DL (0.76-1.46)
[2020-11-26] MEDS ORDERED: CALCIUM (CARBONATE) 500 MG TABLET PO SCH ×3 (09:00→15:00)
[2020-11-26] MEDS: PREGABALIN 25 MG CAPSULE PO SCH (10:21)
[2020-11-26] MEDS: ALFUZOSIN 10 MG TABLET PO SCH (10:23)
[2020-11-26] MEDS: PANTOPRAZOLE 40 MG TABLET PO SCH (10:23)
[2020-11-26] MEDS: buPROPion SR 150 MG TABLET PO SCH (10:24)
[2020-11-26] MEDS: DOCUSATE SODIUM 100 MG CAPSULE PO SCH (10:24)
[2020-11-26] MEDS: AMIODARONE 200 MG TABLET PO SCH (10:25)
[2020-11-26] MEDS: MEMANTINE 10 MG TABLET PO SCH (10:25)
[2020-11-26] MEDS: CHOLECALCIFEROL 5,000 UNIT TABLET PO SCH (10:26)
[2020-11-26] MEDS: POTASSIUM PHOS/SOD PHOS POWDER 250 MG PACK PO SCH (10:26)
[2020-11-26] MEDS: METOPROLOL TARTRATE 25 MG TABLET PO SCH (10:33)
[2020-11-26 13:13] VITALS: BP 146/50
[2020-11-26] MEDS: SODIUM CHLORIDE 0.9% 1,000 ML IV SCH (16:36)
== END 2020-11-26 14:41 | disposition home or self-care (01) ==
LOC: N.ED 13:10 → N.EDINP 13:10 → N.TELES 18:23
PROVIDERS: ADMIT Internal Medicine; ATTEND Internal Medicine